=== PATIENT | female | born 1960 | race Caucasian/White ===

== ENCOUNTER 2016-08-05 20:08 | Emergency (ER) | payer OTHER ==
[2016-08-05 20:26] VITALS: TEMP 101.9; O2SAT 94
--- NOTE | 2016-08-05 21:14 | ED.PDOC ---
History of Present Illness - General Chief Complaint: Fever Stated Complaint: fever Time Seen by Provider: 08/05/16 20:36 Source: patient Exam Limitations: no limitations - History of Present Illness Initial Comments: Patient presents with fever for 4 days. No other symptoms. She says her whole family has the flu. 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 Associated Symptoms: denies symptoms Review of Systems - Review of Systems Constitutional: States: see HPI EENTM: States: no symptoms reported Respiratory: States: no symptoms reported Cardiology: States: no symptoms reported Gastrointestinal/Abdominal: States: no symptoms reported Genitourinary: States: no symptoms reported Musculoskeletal: States: no symptoms reported Skin: States: no symptoms reported Neurological: States: no symptoms reported Endocrine: States: no symptoms reported Hematologic/Lymphatic: States: no symptoms reported Past Medical History (General) - Patient Medical History Hx Seizures: No Hx Stroke: Yes Hx Dementia: No Hx Asthma: No Hx of COPD: Yes Hx Cardiac Disorders: Yes - Stents Hx Congestive Heart Failure: No Hx Pacemaker: No Hx Hypertension: Yes Hx Thyroid Disease: No Hx Diabetes: No Hx Gastroesophageal Reflux: Yes Hx Renal Disease: No Hx Cancer: No Hx of HIV: No Hx Hepatitis C: No Hx MRSA: No - Vaccination History Hx Tetanus, Diphtheria Vaccination: No Hx Influenza Vaccination: No Hx Pneumococcal Vaccination: No - Social History Hx Tobacco Use: Yes Hx Chewing Tobacco Use: No Hx Alcohol Use: No Hx Substance Use: No Hx Substance Use Treatment: No Hx Depression: No Hx Physical Abuse: No Hx Emotional Abuse: No Hx Suspected Abuse: No - Triage Comment ED Triage Comment: Pt states she has been running a fever for the past 4 days. She states it could possibly be from an infected tatoo Family Medical History - Family History Mother Family History: Unknown Physical Exam - Physical Exam General Appearance: Alert ENT Exam: normal ENT inspection Neck: non-tender, full range of motion, supple Respiratory: lungs clear Cardiovascular/Chest: regular rate, rhythm Gastrointestinal/Abdominal: normal bowel sounds, non tender, soft Skin Exam: normal color Lymphatic: no adenopathy Progress - Progress Progress: 08/05/16 21:13 Influenza A positive. Rapid strep negative. Departure - Departure Clinical Impression: Influenza A Disposition: Discharge to Home or Self Care Condition: Good Departure Forms: ED Discharge - Pt. Copy, Patient Portal Self Enrollment Diet: resume usual diet Activity: increase activity as tolerated Home Medications: Ambulatory Orders BuPROPion XL [Wellbutrin XL] 150 mg PO DAILY 10/13/14 Duloxetine HCl [Cymbalta] 60 mg PO BID 10/13/14 Esomeprazole Magnesium [Nexium] 20 mg PO TID 10/13/14 Quetiapine Fumarate [Seroquel] 300 mg PO DAILY 10/13/14 ALPRAZolam [Xanax] 0.5 mg PO TID 02/24/16 Aspirin [Aspirin Adult Low Dose] 81 mg PO DAILY 02/24/16 Doxycycline (Monohydrate) [Doxycycline] 100 mg PO BID 02/24/16 HYDROcodone 10MG/APAP 325MG [[place] 10/325] 1 ea PO DAILY 02/24/16 Oxcarbazepine [Trileptal] 600 mg PO BID 02/24/16 Prasugrel [Effient] 10 mg PO DAILY 02/24/16 Additional Instructions: Increase oral fluids. Tylenol for pain or fever control. Return to clinic or ER if symptoms have not resolved in 7 days.
[2016-08-05 21:34] VITALS: BP 121/64
== END 2016-08-05 21:34 | disposition home or self-care (01) ==
LOC: ER 20:08
DX: J10.1 Influenza due to other identified influenza virus with other respiratory manifestations (principal); J44.9 Chronic obstructive pulmonary disease, unspecified; I10 Essential (primary) hypertension; K21.9 Gastro-esophageal reflux disease without esophagitis; Z87.891 Personal history of nicotine dependence; Z86.73 Personal history of transient ischemic attack (TIA), and cerebral infarction without residual deficits; Z79.899 Other long term (current) drug therapy

== ENCOUNTER 2016-08-17 17:17 | Inpatient (IN) | payer OTHER ==
[2016-08-17] MEDS ORDERED: ACETAMINOPHEN 500 MG TAB PO ONE (17:44)
--- NOTE | 2016-08-17 17:48 | ED.PDOC ---
History of Present Illness - General Chief Complaint: Skin/Abrasion/Tear Stated Complaint: abscess Time Seen by Provider: 08/17/16 17:26 Source: patient Exam Limitations: no limitations - History of Present Illness Initial Comments: PT C/O PAIN TO L UPPER BACK, COUGH, SOB, FEVER. Timing/Duration: unsure Severity: moderate Worsening Factors: nothing Associated Symptoms: fever/chills Allergies/Adverse Reactions: Allergies Sulfa Antibiotics Allergy (Verified 08/17/16 17:29) Home Medications: Ambulatory Orders BuPROPion XL [Wellbutrin XL] 150 mg PO DAILY 10/13/14 Duloxetine HCl [Cymbalta] 60 mg PO BID 10/13/14 Esomeprazole Magnesium [Nexium] 20 mg PO TID 10/13/14 Quetiapine Fumarate [Seroquel] 300 mg PO DAILY 10/13/14 ALPRAZolam [Xanax] 0.5 mg PO TID 02/24/16 Aspirin [Aspirin Adult Low Dose] 81 mg PO DAILY 02/24/16 Doxycycline (Monohydrate) [Doxycycline] 100 mg PO BID 02/24/16 HYDROcodone 10MG/APAP 325MG [[place] 10/325] 1 ea PO DAILY 02/24/16 Oxcarbazepine [Trileptal] 600 mg PO BID 02/24/16 Prasugrel [Effient] 10 mg PO DAILY 02/24/16 Review of Systems - Review of Systems Constitutional: States: fever. Denies: chills EENTM: States: throat pain. Denies: ear pain, nose pain Respiratory: States: cough, other - PROD YELLOW SPUTUM. Denies: short of breath Cardiology: Denies: chest pain, palpitations, syncope Gastrointestinal/Abdominal: States: nausea. Denies: abdominal pain, diarrhea Musculoskeletal: States: no symptoms reported Skin: States: no symptoms reported Neurological: States: no symptoms reported Endocrine: States: no symptoms reported Hematologic/Lymphatic: States: no symptoms reported Past Medical History (General) - Patient Medical History Hx Seizures: No Hx Stroke: Yes Hx Dementia: No Hx Asthma: No Hx of COPD: Yes Hx Cardiac Disorders: Yes - Stents, [place] Hx Congestive Heart Failure: No Hx Pacemaker: No Hx Hypertension: Yes Hx Thyroid Disease: No Hx Diabetes: No Hx Gastroesophageal Reflux: Yes Hx Renal Disease: No Hx Cancer: No Hx of HIV: No Hx Hepatitis C: No Hx MRSA: No Surgical History: cholecystectomy - Vaccination History Hx Tetanus, Diphtheria Vaccination: No Hx Influenza Vaccination: No Hx Pneumococcal Vaccination: No - Social History Hx Tobacco Use: Yes Hx Chewing Tobacco Use: No Hx Alcohol Use: No Hx Substance Use: No Hx Substance Use Treatment: No Hx Depression: No Hx Physical Abuse: No Hx Emotional Abuse: No Hx Suspected Abuse: No - Activities of Daily Living Hospice Agency (if applicable):: None - Female History Patient is a Female of Child Bearing Age (10 -59 yrs old): No Patient : No Family Medical History - Family History Mother Family History: Unknown Physical Exam - Physical Exam General Appearance: Alert, No apparent distress Eye Exam: bilateral normal Ears, Nose, Throat: other - EDENTULOUS, MOIST MM Neck: full range of motion, supple, normal inspection Respiratory: no respiratory distress, no accessory muscle use, rales - BIBASILAR , other - NO WHEEZES, RHONCHI Cardiovascular/Chest: regular rate, rhythm, no murmur, other - 3 SMALL PUSTULES TO ANT CHEST WALL. Gastrointestinal/Abdominal: normal bowel sounds, soft, no organomegaly Back Exam: normal inspection, no CVA tenderness, other - 6-7 CM ABSCESS TO L UPPER POST THROAX WITH PRURULENT MATERIAL DRAINING FROM CENTRAL OPENING Extremity: normal range of motion, non-tender, normal inspection Neurologic: alert, normal mood/affect, oriented x 3 Skin Exam: normal color, warm/dry, other - SEE BACK AND CHEST Lymphatic: no adenopathy Progress - Progress Progress: 08/17/16 21:27 HAS REMAINED STABLE. Procedures - Incision and Drainage #1 Site: L POST THORAX Procedure and Prep: betadine prep, sterile drapes applied, pus drained Procedure Comments: APPROX 15CC PUS OBTAINED, SEPTATIONS BLUNTLY REMOVED, PACKED WITH IODOFORM GAUZE. Departure - Departure Clinical Impression: Abscess Pneumonia Qualifiers: Pneumonia type: due to unspecified organism Laterality: bilateral Lung location : upper lobe of lung Qualifier Code: (J18.9) Pneumonia, unspecified organism Time of Disposition: 21:30 - D/W DR ARGUELLO WILL ADMIT Disposition: Admit Patient Condition: Fair Departure Forms: ED Discharge - Pt. Copy, Patient Portal Self Enrollment Home Medications: Ambulatory Orders BuPROPion XL [Wellbutrin XL] 150 mg PO DAILY 10/13/14 Duloxetine HCl [Cymbalta] 60 mg PO BID 10/13/14 Esomeprazole Magnesium [Nexium] 20 mg PO TID 10/13/14 Quetiapine Fumarate [Seroquel] 300 mg PO DAILY 10/13/14 ALPRAZolam [Xanax] 0.5 mg PO TID 02/24/16 Aspirin [Aspirin Adult Low Dose] 81 mg PO DAILY 02/24/16 Doxycycline (Monohydrate) [Doxycycline] 100 mg PO BID 02/24/16 HYDROcodone 10MG/APAP 325MG [[place] 10/325] 1 ea PO DAILY 02/24/16 Oxcarbazepine [Trileptal] 600 mg PO BID 02/24/16 Prasugrel [Effient] 10 mg PO DAILY 02/24/16
--- NOTE | 2016-08-17 18:16 | RAD ---
PROCEDURE: Chest,2 Views CLINICAL HISTORY: COUGH, FEVER INDICATION: Same as above COMPARISON: 02/24/2016 TECHNIQUE: PA and and lateral chest radiographs were obtained. FINDINGS: There is presence of diffuse large infiltrates involving all segments of the right lung and presence of aodeb-ic-wetqeiij size infiltrates in the left upper lobe and lingula of the left lung There are no pneumothoraces or pleural effusions. The pulmonary vascularity is normal The cardiomediastinal silhouette is unremarkable for patient's age and sex. IMPRESSION: There is presence of diffuse large infiltrates involving all segments of the right lung and presence of [id number] size infiltrates in the left upper lobe and lingula of the left lung Electronically signed by: Mika Fuentes MD 08/17/2016 6:15 PM CHAIN HOIST OPERATOR
[2016-08-17] MEDS ORDERED: CLINDAMYCIN IV 900MG 900 MG in PREMIX BAG 1 BAG IVPB ONE (18:34)
[2016-08-17] MEDS ORDERED: cefTRIAXone SODIUM 1 GM in SODIUM CHL 0.9% 50ML MIN-BAG+ 50 ML IVPB ONE (18:34)
[2016-08-17] MEDS ORDERED: AZITHROMYCIN IV 500 MG in SODIUM CHLORIDE 0.9% 250ML 250 ML IVPB ONE (18:34)
[2016-08-17] MEDS ORDERED: LORazepam 0.5 MG TAB PO ONE (18:37)
[2016-08-17] MEDS ORDERED: POTASSIUM CHLORIDE 20 MEQ TAB PO ONE (18:37)
[2016-08-17] MEDS ORDERED: cefTRIAXone SODIUM 1 GM VIAL ONE (19:08)
[2016-08-17] MEDS ORDERED: AZITHROMYCIN IV 500 MG VIAL IVPB ONE (19:08)
[2016-08-17] MEDS ORDERED: SODIUM CHL 0.9% 50ML MIN-BAG+ 50 ML IVPB ONE (19:09)
[2016-08-17] MEDS ORDERED: CLINDAMYCIN IV 900MG 50 ML IVPB ONE (19:09)
[2016-08-17] MEDS ORDERED: SODIUM CHLORIDE 0.9% 250ML 250 ML ONE (19:09)
[2016-08-17] MEDS ORDERED: SODIUM CHLORIDE 0.9% (FLUSH) 10 ML SYG IV PRN (20:32)
[2016-08-17] MEDS ORDERED: HYDROcodone 5MG/APAP 325MG 1 EA TAB PO PRN (20:32)
[2016-08-17] MEDS ORDERED: MAGNESIUM HYDROXIDE 30 ML UD PO PRN (20:32)
[2016-08-17] MEDS ORDERED: ACETAMINOPHEN 325 MG TAB PO PRN (20:32)
[2016-08-17] MEDS ORDERED: LEVALBUTEROL NEBS 1.25 MG/3 ML VIAL INH PRN (20:32)
[2016-08-17] MEDS ORDERED: ALPRAZolam 0.5 MG TAB PO PRN (20:41)
[2016-08-17] MEDS ORDERED: SOD CHL 3% *HYPERTONIC* 500ML 300 ML IVS ONE (20:45)
[2016-08-17] MEDS ORDERED: KCL 40 MEQ/WATER FOR INJECTION 40 MEQ in PREMIX BAG 1 BAG IVPB ONE (20:46)
[2016-08-17] MEDS ORDERED: FUROSEMIDE 40 MG TAB PO ONE (20:47)
[2016-08-17] MEDS ORDERED: LIDOCAINE 1% 10 ML VIAL INJ ONE (20:51)
[2016-08-17] MEDS ORDERED: NON-FORMULARY MEDICATION 1 EA MIS (Quetiapine Fumarate [Seroquel] 300 MG) PO SCH (21:00)
[2016-08-17] MEDS ORDERED: IV SET AND CAP CHANGE INJ INJ SCH (21:00)
[2016-08-17] MEDS ORDERED: NON-FORMULARY MEDICATION 1 EA MIS (Duloxetine Hcl [Cymbalta] 60 MG) PO SCH (21:00)
[2016-08-17] MEDS ORDERED: OXCARBAZEPINE 600 MG PO SCH (21:00)
[2016-08-17] MEDS ORDERED: IODOFORM PACKING 1/2 INCH 1 EA BTTL TOP ONE (21:14)
[2016-08-17] MEDS ORDERED: POVIDONE IODINE 10 % 15 ML UD TOP ONE (21:15)
--- NOTE | 2016-08-17 21:56 | HP ---
HISTORY OF PRESENT ILLNESS: This 55 year-old white female is admitted to the hospital via the Emergency Room because of worsening cough and dark sputum production with a large boil on her left shoulder. It is of note that she was in the Emergency Room with a fever 2 weeks ago and was found to have Influenza A infection and returned home. She describes herself as generally being homeless but she does visit her mother occasionally in [place]. For the last 3 to 4 weeks, she has increased worsening cough now with sputum yellowish brown in coloration. She has had continued fever and chills, and now present with worsening dyspnea as well. For the last 3 to 4 days, she has had a large growing tender boil on her left shoulder posteriorly that presents now with a large carbuncle requiring incision and drainage. In the Emergency Room, she was found to have a slightly elevated white count of over 12,000 with low potassium, low sodium, elevated liver enzymes and a very severe bilateral pneumonia present. Cultures were obtained and the patient was started on Cleocin, Azithromycin and Rocephin because of the severity of the underlying infiltrative process. PAST MEDICAL HISTORY: 1. Myocardial infarction in October of 2015. 2. She states that she has had some mental problems which may be indicative of a bipolar presentation but the patient has a hard time explaining what her problems are. PAST SURGICAL HISTORY: 1. Lumbar back. 2. Gallbladder. 3. Breast. 4. Uterus. 5. Bladder suspension. PAST OBSTETRIC HISTORY: 3 para 3, AB 0. Two of her children are still alive. CURRENT MEDICATIONS: Please refer to nurses' notes for an up to date list of verified home medicines. ALLERGIES: SULFA ANTIBIOTICS. SOCIAL HISTORY: She stopped smoking over 6 weeks ago. 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 REVIEW OF SYSTEMS: No significant weight change. She has had fever and chills. Hearing and vision appear to be normal. LUNGS: Worsening shortness of breath with cough and production of yellowish brown sputum over the last 2 to 3 weeks and worsening. Exertional dyspnea present. CARDIOVASCULAR: No significant chest pain. Pulse is fairly regular. ABDOMEN: Soft with no organomegaly, masses or tenderness. Appetite is fair. EXTREMITIES: A large carbuncle with multiple heads is noted in the left shoulder area to be opened by the Emergency Room doctor with cultures to be obtained and continued wound care. NEUROLOGIC: The patient is communicative and seems to be well oriented. PHYSICAL EXAMINATION: VITAL SIGNS: Temperature 100.8 up to 101.9, pulse 95, blood pressure 122/67, pulse oximetry 94% on room air. Weight 90.7 kilos. GENERAL: The patient is awake and alert. She is frequently coughing and is able to produce some sputum for culture. Painful swelling in the left shoulder will be incised and drained by the E. R. physician and further wound care to continue. CARDIOVASCULAR: Regular rhythm. ABDOMEN: Generally soft with no organomegaly, masses or tenderness. EXTREMITIES: Fairly well formed with a large carbuncle behind the left shoulder. NEUROLOGIC: The patient is able to carry on a good conversation and is fairly good regarding her past history. LABORATORY: White count elevated at 12,100 with 80% neutrophils, hemoglobin 10.6 with a normocytic normochromic presentation. Chemistry shows sodium low at 126, potassium low at 2.4, CO2 of 34, BUN 10, creatinine 0.6, glucose 93, osmolality low at 252, calcium 8. Liver enzymes elevated with AST of 128, ALT 68, alkaline phosphatase 129, albumin 2.2. Urinalysis does show some urobilinogen, 1+ bacteriuria. Strep is negative and Influenza A is positive dated 2 weeks ago in the Emergency Room. Blood cultures are pending. Chest x-ray performed today is very abnormal with a bilateral pneumonia with large infiltrate especially involving segments of the right lung with infiltrates also present left upper lobe and lingula left lung with close followup as necessary and treatment to be vigorously advanced. ASSESSMENT: 1. Bilateral pneumonia quite severe. Close observation and parenteral antibiotics initiated. 2. Carbuncle left shoulder after incision and drainage in the Emergency Room requiring ongoing wound care. 3. Anemia with a normocytic normochromic presentation. 4. Elevated white count of 12,100 with 80% neutrophils. 5. Hypokalemia, potassium 2.4. 6. Hyponatremia with 126. 7. Elevated liver enzymes. 8. Hypoalbuminemia. 9. Recent flu A infection without treatment. PLAN: The patient is admitted for initiation of vigorous treatment options including parenteral antibiotic therapy after cultures obtained. She will be started on Rocephin, Azithromycin and Cleocin. Social Service to evaluate for possible fdc placement since the patient states that she is homeless and is having a difficult time managing. Fluid restrictions with a loop diuretic dose tonight, hypertonic saline, recheck sodium and a potassium ride is given. Reevaluate in the morning. MRSA decolonization in progress and wound care to continue. Close followup suggested. Outpatient followup with Dr. Do, her primary care provider when stable. #[id number] [facility]
[2016-08-17] MEDS ORDERED: BENZONATATE PERLES 100 MG CAP PO PRN (21:59)
[2016-08-17] MEDS ORDERED: OXcarbazepine 300 MG TAB PO ONE (22:23)
[2016-08-17] MEDS ORDERED: QUEtiapine FUMARATE 100 MG TAB ONE (22:23)
[2016-08-17] MEDS ORDERED: DULoxetine HCL 30 MG CAP PO ONE (22:23)
[2016-08-17] MEDS: BACITRACIN 0.9 GM UD PCKT TOP SCH (22:34)
[2016-08-17] MEDS: PROMETHAZINE W/CODEINE SYR 5 ML UD PO PRN (22:35)
[2016-08-17] MEDS ORDERED: KCL 40 MEQ/WATER FOR INJECTION 100 ML IVPB ONE (22:46)
[2016-08-18] MEDS ORDERED: CLINDAMYCIN IV 900MG 50 ML IVPB ONE ×2 (02:45→08:09)
[2016-08-18] MEDS: CLINDAMYCIN IV 900MG 900 MG in PREMIX BAG 1 BAG IVPB SCH ×2 (03:11→11:48)
[2016-08-18] MEDS: KCL 40MEQ/NS 1,000 ML IVS PRN ×2 (03:40→20:02)
[2016-08-18] MEDS: OMEPRAZOLE CAP 20 MG CAP PO SCH (06:50)
[2016-08-18] MEDS ORDERED: SODIUM CHLORIDE 0.9% 10 ML VIAL IV PRN (07:25)
--- NOTE | 2016-08-18 07:54 | RAD ---
EXAM DESCRIPTION: Chest,2 Views CLINICAL HISTORY: Pneumonia COMPARISON: 08/17/2016 TECHNIQUE: Two-views of the chest. FINDINGS: Cavitary lesion right upper lobe. Alveolar consolidation over about 6.5 cm with central lucency consistent with cavitation. Mild volume loss right upper lobe. Perihilar alveolar infiltrate. There is a small area of left suprahilar opacity, likely pneumonia. Faint left lung base interstitial infiltrate. No pleural effusion. No acute bony abnormality IMPRESSION: Large area of cavitary consolidation right upper lobe strongly suggesting pulmonary abscess. Underlying cavitary mass lesion not excluded. Bilateral patchy infiltrates perihilar regions Electronically signed by: Tito Thornton MD 08/18/2016 7:53 AM AERONAUTICAL DESIGN ENGINEER
[2016-08-18] MEDS ORDERED: SODIUM CHL 0.9% 50ML MIN-BAG+ 50 ML IVPB ONE (08:09)
[2016-08-18] MEDS ORDERED: cefTRIAXone SODIUM 1 GM VIAL ONE (08:10)
[2016-08-18] MEDS: OXcarbazepine 300 MG TAB PO SCH ×2 (08:41→21:07)
[2016-08-18] MEDS: ASPIRIN EC 81 MG TAB PO SCH (08:41)
[2016-08-18] MEDS: DULoxetine HCL 30 MG CAP PO SCH ×2 (08:41→21:07)
[2016-08-18] MEDS: PRASUGREL 10 MG TAB PO SCH (08:42)
[2016-08-18] MEDS: Wellbutrin XL 150 MG TAB PO SCH (08:42)
[2016-08-18] MEDS: BACITRACIN 0.9 GM UD PCKT TOP SCH ×2 (08:42→21:07)
[2016-08-18] MEDS: IPRATROPIUM/ALBUTEROL 3 ML VIAL INH SCH ×4 (08:45→21:15)
[2016-08-18] MEDS ORDERED: cefTRIAXone SODIUM 1 GM in SODIUM CHL 0.9% 50ML MIN-BAG+ 50 ML IVPB SCH (09:00)
[2016-08-18] MEDS: CHLORHEXIDINE GLUCONATE 4 % 15 ML UD TOP SCH (09:29)
[2016-08-18] MEDS: PROMETHAZINE W/CODEINE SYR 5 ML UD PO PRN ×3 (11:48→22:45)
--- NOTE | 2016-08-18 13:56 | CT ---
CT chest with contrast CLINICAL HISTORY: Pneumonia. Cavitary lesions suggesting pulmonary abscess TECHNIQUE: Contrast-enhanced spiral CT with intravenous iodinated nonionic contrast. Coronal and sagittal reformatted images. COMPARISON: Radiograph 08/18/2016. FINDINGS: Cavitary lung lesions right upper lobe and superior segment right lower lobe consistent with pulmonary abscess with large areas of surrounding consolidation/infiltrate. The right upper lobe abscess has approximate measurements of 4.5 x 5.4 x 5.1 cm. Superior segment right lower lobe abscess approximately 4.8 x 5.8 x 6 cm Patchy areas of consolidation are also seen in the left upper lobe anterior medial where there are subtle early areas of cavitation suspected for example axial series 2 image 23. Patchy infiltrate in the inferior lingula and a small focal area of consolidation left lateral basal. There is a small amount of pleural fluid Normal heart size. Mediastinal and hilar lymph nodes are likely reactive lymphadenopathy Normal contrast enhancement of the cardiac chambers and thoracic aorta. Normal contrast enhancement of pulmonary arteries. Normal heart size Images through the upper abdomen show no mass or adenopathy Multilevel degenerative change in the spine without acute bony abnormality IMPRESSION: Bilateral pneumonia. Large areas of cavitation/pulmonary abscess right upper lobe and superior segment right lower lobe. Focal small area of infiltrate/consolidation in the anterior perihilar left upper lobe with early cavitation Electronically signed by: Tito Thornton MD 08/18/2016 1:55 PM EXTRACORPOREAL TECHNICIAN
[2016-08-18] MEDS ORDERED: VANCOMYCIN PER PHARMACY IVPB SCH (17:00)
[2016-08-18] MEDS ORDERED: PIPERACILLIN/TAZOBACTAM 2.25 GM VIAL IVPB ONE ×2 (17:43→22:27)
[2016-08-18] MEDS ORDERED: SODIUM CHLORIDE 0.9% 100ML 100 ML IVPB ONE ×2 (17:43→22:28)
[2016-08-18] MEDS ORDERED: TUBERCULIN 5TU 5 TU/0.1 ML VIAL ID ONE (18:29)
[2016-08-18] MEDS: PIPERACILLIN/TAZOBACTAM 4.5 GM in SODIUM CHLORIDE 0.9% 100ML 100 ML IVPB SCH (18:48)
[2016-08-18] MEDS ORDERED: SODIUM CHLORIDE 0.9% 250ML 250 ML ONE (19:46)
[2016-08-18] MEDS ORDERED: VANCOMYCIN HCL INJ 500 MG VIAL ONE (19:46)
[2016-08-18] MEDS ORDERED: VANCOMYCIN HCL INJ 1,000 MG VIAL IVPB ONE (19:47)
[2016-08-18] MEDS: VANCOMYCIN HCL INJ 1,000 MG, VANCOMYCIN HCL INJ 250 MG in SODIUM CHLORIDE 0.9% 250ML 25... IVPB SCH (20:02)
[2016-08-18] MEDS ORDERED: QUEtiapine FUMARATE 100 MG TAB PO SCH (21:00)
[2016-08-18] MEDS ORDERED: AZITHROMYCIN IV 500 MG in SODIUM CHLORIDE 0.9% 250ML 250 ML IVPB SCH (21:00)
[2016-08-19] MEDS: PIPERACILLIN/TAZOBACTAM 4.5 GM in SODIUM CHLORIDE 0.9% 100ML 100 ML IVPB SCH ×2 (00:07→06:13)
[2016-08-19] MEDS ORDERED: PIPERACILLIN/TAZOBACTAM 2.25 GM VIAL IVPB ONE (05:47)
[2016-08-19] MEDS ORDERED: SODIUM CHLORIDE 0.9% 100ML 100 ML IVPB ONE (05:48)
[2016-08-19] MEDS: PROMETHAZINE W/CODEINE SYR 5 ML UD PO PRN (06:14)
[2016-08-19] MEDS: OMEPRAZOLE CAP 20 MG CAP PO SCH (06:30)
[2016-08-19] MEDS ORDERED: SODIUM CHLORIDE 0.9% 250ML 250 ML ONE (06:31)
[2016-08-19] MEDS ORDERED: VANCOMYCIN HCL INJ 500 MG VIAL ONE (06:31)
[2016-08-19] MEDS ORDERED: VANCOMYCIN HCL INJ 1,000 MG VIAL IVPB ONE (06:31)
[2016-08-19] MEDS: VANCOMYCIN HCL INJ 1,000 MG, VANCOMYCIN HCL INJ 250 MG in SODIUM CHLORIDE 0.9% 250ML 25... IVPB SCH (08:10)
--- NOTE | 2016-08-19 08:17 | PN ---
SUPERVISING PHYSICIAN: Rashaun Tineo MD DATE: 08/18/16 SUBJECTIVE: The patient is lying in her hospital bed. She has a dry, hacking cough. It is very difficult to discern if she is answering questions appropriately as sometimes she does not seem to understand the questioning. At this point, she denies shortness of breath, but she is obviously dyspneic with respiratory rate about 24. She also denies any nausea or vomiting, any stomach pain, dizziness, or headaches. OBJECTIVE: VITAL SIGNS: Afebrile. Heart rate 82. Blood pressure 122/70. Respiratory rate has gone as high as 24, but is mostly around 20. O2 saturations 88%. GENERAL: This is a very disheveled 55-year-old female. LUNGS: Bilateral rhonchi throughout with some mild expiratory wheezing. She is diminished at the bases. CARDIAC: Regular rate and rhythm. ABDOMEN: Soft, nontender, nondistended. Bowel sounds are positive. The drain to her abscess on her back is draining kind of a serous type fluid. NEUROLOGIC: Awake, alert and oriented times three, but she has a difficult time answering simple yes/no questions and is a poor historian. LABORATORY: WBC 12.7, hemoglobin 10.2, hematocrit 30.3, neutrophils 85.9. Sodium 132, potassium 3.1, chloride 92, creatinine 0.57, serum osmolality 263.6 , calcium 7.7, total bilirubin 1.2, AST 105, ALT 61, alkaline phosphatase 126, albumin 2.1, globulin 4.9. Preliminary blood cultures are negative after 24 hours. Chest x-ray shows a large area of cavitary consolidation in the right upper lobe strongly suggesting a pulmonary abscess with underlying cavitary mass lesion not excluded with bilateral patchy infiltrates to the perihilar regions. Chest CT shows bilateral pneumonia, large areas of cavitation/ pulmonary abscess of the right upper lobe and superior segment right lower lobe with small area of infiltrate/consolidation in the anterior perihilar left upper lobe with early cavitation. The right upper lobe abscess has approximate measurements of 4.5 x 5.4 x 5.1 cm and the superior segment right lower lobe abscess is approximately 4.8 x 5.8 x 6 cm. All other labs and films have been reviewed via the EMR. ASSESSMENT: 1. Cavitary pneumonia of the right upper lobe and right lower lobe. 2. Bilateral pneumonia of the perihilar regions. 3. Carbuncle of the left shoulder after incision and drainage in the Emergency Room requiring ongoing wound care and continuing serous drainage. 4. Anemia with normocytic/normochromic presentation. 5. Leukocytosis. 6. Hypokalemia. 7. Hyponatremia. 8. Elevated liver enzymes. 9. Hypoalbuminemia. 10. Recent flu A infection without treatment. PLAN: The patient is quite sick. I discussed at length her CT scan with the radiologist, Dr. Tito Thornton. I also discussed her case with Dr. Rosenbaum, pump station operator in [place]. At his recommendation, we have changed her IV antibiotics to Zosyn. According to Dr. Rosenbaum, she will need approximately 4 to 6 weeks for continued IV antibiotic therapy with close followup with a pump station operator. I have also added vancomycin. We have put her in respiratory isolation as well as PPD skin test to rule out any TB. There was a sputum collected in the Emergency Room, but somehow did get to the lab, so I have added a sputum culture although she has been treated with some antibiotics for about 24 hours. Kim Romero, our older adult social work specialist, has initiated discharge to [facility]. We will also have to plan on a PICC line at some point because of her prison antibiotic regimen that will be coming up. Her medications have not been completely verified, so we will need to find out some more information about those. We will also need to monitor for syndrome of inappropriate ADH. I will also check her potassium and her magnesium this evening. Routine lab with the magnesium will be done in the morning. We will encourage good pulmonary toilet. Followup as medically needed. Dr. Tineo is the collaborating physician and available for consultation. #[id number] [facility]
[2016-08-19] MEDS ORDERED: POTASSIUM CHLORIDE 20 MEQ TAB PO ONE (08:26)
[2016-08-19] MEDS: IPRATROPIUM/ALBUTEROL 3 ML VIAL INH SCH (08:33)
[2016-08-19] MEDS ORDERED: KCL 20MEQ/WATER FOR INJ 100ML 100 ML IVPB ONE (09:07)
[2016-08-19] MEDS ORDERED: FLUCONAZOLE IV 200 MG in PREMIX BAG 1 BAG IVPB ONE (10:00)
[2016-08-19] MEDS ORDERED: FLUCONAZOLE IV 100 ML IVPB ONE (10:01)
[2016-08-19] MEDS: OXcarbazepine 300 MG TAB PO SCH (10:09)
[2016-08-19] MEDS: BACITRACIN 0.9 GM UD PCKT TOP SCH (10:10)
[2016-08-19] MEDS: ASPIRIN EC 81 MG TAB PO SCH (10:10)
[2016-08-19] MEDS: PRASUGREL 10 MG TAB PO SCH (10:10)
[2016-08-19] MEDS: Wellbutrin XL 150 MG TAB PO SCH (10:10)
[2016-08-19] MEDS: DULoxetine HCL 30 MG CAP PO SCH (10:10)
[2016-08-19] MEDS: CHLORHEXIDINE GLUCONATE 4 % 15 ML UD TOP SCH (10:11)
[2016-08-19] MEDS ORDERED: KCL 20MEQ/WATER FOR INJ 100ML 20 MEQ in PREMIX BAG 1 BAG IVPB ONE (11:00)
[2016-08-19 12:10] VITALS: BP 138/91; TEMP 97.6; O2SAT 91
--- NOTE | 2016-08-19 14:08 | DS ---
SUPERVISING PHYSICIAN: Rashaun Tineo MD DISCHARGE DIAGNOSIS: 1. Cavitary pneumonia of the right upper lobe and right lower lobe. 2. Bilateral pneumonia of the perihilar regions. 3. Carbuncle of the left shoulder after incision and drainage in the Emergency Room requiring ongoing wound care and continuing serous drainage. 4. Anemia with normocytic/normochromic presentation. 5. Leukocytosis. 6. Hypokalemia. 7. Hyponatremia. 8. Elevated liver enzymes. 9. Hypoalbuminemia. 10. Recent flu A infection without treatment. HISTORY OF PRESENT ILLNESS: This is a 55-year-old female patient who was admitted to the hospital via the Emergency Room due to worsening cough and dark sputum production as well as a large boil on her left shoulder. She had been in the Emergency Room with fever about two weeks ago and was found to have influenza A infection and she returned home. She described herself as generally being homeless, but she does visit her mother occasionally in [place]. For the last three to four weeks, she has had an increasingly worse cough with yellowish brown sputum in coloration. She also continued to have fever and chills. She came to the Emergency Room due to worsening dyspnea as well as a tender boil on her left shoulder. In the Emergency Room, there was an I&D done on the boil and the wound was cultured. She was also found to have a slightly elevated white count of over 12,000 with a low potassium, low sodium , elevated liver enzymes, and a very severe bilateral pneumonia. Cultures were obtained and the patient was started on Cleocin, azithromycin and Rocephin. HOSPITAL COURSE: The patient's condition did not improve and a CT of her chest was obtained that showed a right upper lobe abscess that had approximate measurements of 4.5 x 5.4 x 5.1 cm and there was another superior segment right lower lobe abscess that was approximately 4.8 x 5.8 x 6 cm. She also had bilateral pneumonia in the perihilar area of her lungs. She continued to need potassium replacement and her cough worsened. She did have a sputum that was done in the Emergency Room, but somehow did not get sent to the lab, so she had a sputum done after antibiotic therapy had started. She was put in airborne isolation. PPD skin test was run as well as AFB on her sputum. Also, we discontinued her azithromycin, clindamycin and Rocephin and changed her to Zosyn as well as vancomycin. The abscess in her left shoulder continued to drain a lot of serous fluids. It is also to be noted that she has some sort of mental problems that are most likely bipolar disorder and I am not quite sure who had been treating her for her bipolar disorder. Her preliminary blood cultures have been negative after 24 hours[address] I spoke with Dr. Tarango this morning , infectious disease physician in [place], after reviewing her labs and her chest CT. She recommended that she be given a dose of metronidazole and transferred to [facility] [place] for more extensive treatment. I spoke with the Emergency Room doctor, Dr. Garcia, and he agreed to the transfer. The patient will be transferred to [facility] Emergency Room per Dr. Garcia's request as well as Dr. Tarango's request. DISCHARGE PLAN: The patient will be discharged in stable condition to [facility] [place]. We have sent all of her hospital records. We have also sent copies of her home medications. She is to followup with her primary care physician after discharge. She will most likely require four to six weeks of IV therapy, but that will be left to [facility] at this time. The patient was transported via ambulance to [facility] [place]. DISCHARGE MEDICATIONS: 1. Wellbutrin. 2. Seroquel. 3. Nexium. 4. Cymbalta. 5. [place]. 6. Trileptal. 7. Xanax. 8. Effient. 9. Aspirin. 10. Fluconazole. 11. Zosyn. 12. Vancomycin. Dr. Tineo is the collaborating physician and available for consultation. #[id number] [facility]
== END 2016-08-19 11:36 | disposition short-term general hospital (02) | DRG 178 ==
LOC: ER 17:17 → MS 21:42 → UNDOADMOB 21:42 → MS 21:43 → OBSVTOIN 08-18 12:13 → INTOOBSV 08-18 12:13 → MS 08-18 18:34 → UNDODISIN 08-19 11:36
PROVIDERS: ADMIT Emergency Medicine; ATTEND Nurse Practitioner Acute Care
PROC: 0H9CXZZ Drainage of Left Upper Arm Skin, External Approach (ICD-10-PCS; principal; 2016-08-18)
PROC: BB24YZZ Computerized Tomography (CT Scan) of Bilateral Lungs using Other Contrast (ICD-10-PCS; 2016-08-18)
DX: J85.1 Abscess of lung with pneumonia (principal); E87.1 Hypo-osmolality and hyponatremia; J44.9 Chronic obstructive pulmonary disease, unspecified; L02.434 Carbuncle of left upper limb; I10 Essential (primary) hypertension; D64.9 Anemia, unspecified; E87.6 Hypokalemia; K21.9 Gastro-esophageal reflux disease without esophagitis; R74.8 Abnormal levels of other serum enzymes; E88.09 Other disorders of plasma-protein metabolism, not elsewhere classified; F31.9 Bipolar disorder, unspecified; I25.2 Old myocardial infarction; Z88.2 Allergy status to sulfonamides; Z87.891 Personal history of nicotine dependence; Z79.82 Long term (current) use of aspirin; Z79.899 Other long term (current) drug therapy; Z86.73 Personal history of transient ischemic attack (TIA), and cerebral infarction without residual deficits; Z95.5 Presence of coronary angioplasty implant and graft

== ENCOUNTER 2017-02-24 21:41 | Emergency (ER) | payer OTHER ==
[2017-02-24] MEDS ORDERED: ASPIRIN TABLET 325 MG TAB ONE (21:52)
[2017-02-24] MEDS ORDERED: LIDOCAINE VIS-MYLANTA 30 ML UD PO ONE (21:56)
[2017-02-24] MEDS ORDERED: ALPRAZolam 0.25 MG TAB PO ONE (21:56)
[2017-02-24 21:58] VITALS: TEMP 98.2
[2017-02-24] MEDS ORDERED: ONDANSETRON ODT 8 MG TAB SL ONE (22:00)
--- NOTE | 2017-02-24 22:00 | ED.PDOC ---
History of Present Illness - General Chief Complaint: Chest Pain/MO Stated Complaint: chest pain elevated BP and HR Time Seen by Provider: 02/24/17 21:49 Source: patient Exam Limitations: no limitations - History of Present Illness Initial Comments: the patient is a 56-year-old female presenting to the emergency room secondary to lower substernal and epigastric painstarting approximately one hour prior to arrival. The pain started approximately half an hour after she ate a bunch of nachos with the picante sauce. She does feel like she needs to belch and is having some nausea. she does have a history of having had a heart attack a few years ago with having 2 stents placed. She does take Effient and aspirin daily and did take them today already. The patient has had a history of gastric ulcers and does take Nexium daily as well.according to her this does feel like heartburn but she has not taken anything additionally for it and wanted to be sure being that she had a cardiac history.he does also have a history of substance abuse but does not appear to be intoxicated today.she did also coincidentally run out of her Xanax within the last 2 days. Timing/Duration: 1 hour Severity: moderate Improving Factors: nothing Worsening Factors: nothing Associated Symptoms: chest pain, nausea/vomiting Allergies/Adverse Reactions: Allergies Sulfa Antibiotics Allergy (Verified 08/17/16 17:29) Home Medications: Ambulatory Orders Esomeprazole Magnesium [Nexium] 20 mg PO TID 10/13/14 ALPRAZolam [Xanax] 0.5 mg PO TID 02/24/16 Aspirin [Aspirin Adult Low Dose] 81 mg PO DAILY 02/24/16 HYDROcodone 10MG/APAP 325MG [Leon 10/325] 1 ea PO DAILY 02/24/16 Prasugrel [Effient] 10 mg PO DAILY 02/24/16 Sucralfate Tab [Carafate Tab] 1 gm PO QID #120 tab 02/25/17 Review of Systems - Review of Systems Constitutional: States: no symptoms reported EENTM: States: no symptoms reported Respiratory: States: no symptoms reported Cardiology: States: chest pain Gastrointestinal/Abdominal: States: abdominal pain, nausea Genitourinary: States: no symptoms reported Musculoskeletal: States: no symptoms reported Skin: States: no symptoms reported Neurological: States: no symptoms reported Endocrine: States: no symptoms reported All other Systems: No Change from Baseline Past Medical History (General) - Patient Medical History Hx Seizures: No Hx Stroke: Yes Hx Dementia: No Hx Asthma: No Hx of COPD: Yes Hx Cardiac Disorders: Yes - Stents, [place] Hx Congestive Heart Failure: No Hx Pacemaker: No Hx Hypertension: Yes Hx Thyroid Disease: No Hx Diabetes: No Hx Gastroesophageal Reflux: Yes Hx Renal Disease: No Hx Cancer: No Hx of HIV: No Hx Hepatitis C: No Hx MRSA: No - Vaccination History Hx Tetanus, Diphtheria Vaccination: No Hx Influenza Vaccination: No Hx Pneumococcal Vaccination: No - Social History Hx Tobacco Use: Yes Hx Chewing Tobacco Use: No Hx Alcohol Use: No Hx Substance Use: No Hx Substance Use Treatment: No Hx Depression: No Hx Physical Abuse: No Hx Emotional Abuse: No Hx Suspected Abuse: No - Female History Patient : No Family Medical History - Family History Mother Family History: Unknown Living Status: Still Living Physical Exam - Physical Exam General Appearance: Alert, Comfortable, No apparent distress Eye Exam: bilateral normal Ears, Nose, Throat: hearing grossly normal, normal ENT inspection, normal pharynx Neck: non-tender, full range of motion, supple Respiratory: lungs clear, normal breath sounds, no respiratory distress, no accessory muscle use Cardiovascular/Chest: normal peripheral pulses, regular rate, rhythm, no edema Peripheral Pulses: radial,right: 2+, radial,left: 2+, dorsalis pedis,right: 2+, dorsalis pedis,left: 2+ Gastrointestinal/Abdominal: soft, tenderness - epigastric. No definite palpable pulsatile masses Rectal Exam: deferred Back Exam: normal inspection, no CVA tenderness Extremity: normal range of motion, non-tender, normal inspection, no pedal edema , no calf tenderness, normal capillary refill Neurologic: prep cook II-XII nml as tested, alert, normal mood/affect, oriented x 3 Skin Exam: normal color Comments: Vital Signs - 24 hr 02/24/17 21:51 Temperature 98.2 F Pulse Rate [ 100 H monitor] Respiratory 20 Rate Blood Pressure 155/80 [left arn] O2 Sat by Pulse 99 Oximetry Progress - Progress Progress: 02/25/17 02:41 the patient's a 56-year-old female presenting with epigastric and substernal chest pain that is most consistent with a flareup of her gastritis and esophagitis. The patient will be written for Carafate 4 times daily for the next month. Cardiac enzymes are negative 2 sets. EKG and chest x-ray along with other lab work are reassuring. She can use Maalox additionally as needed to control symptoms. ER warnings were given for any worsening. She should follow up with her primary care doctor next week and with her form carpenter as previously scheduled. - Results/Orders Results/Orders: EKG shows normal sinus rhythm at a rate of [address] segment changes concerning for ischemia when compared with previous EKGs. Normal R-wave progression. Normal axis. 02/24/17 21:56 Telemetry .CONTINUOUS 02/24/17 22:00 EKG STAT Laboratory Results - last 24 hr 02/24/17 02/24/17 02/24/17 22:24 22:24 22:24 WBC 8.1 RBC 4.38 Hgb 13.0 Hct 39.6 MCV 90.5 MCH 29.6 MCHC 32.7 L RDW 15.1 H Plt Count 179 MPV 7.0 L Absolute Neuts (auto) 5.00 Absolute Lymphs (auto) 2.40 Absolute Monos (auto) 0.40 Absolute Eos (auto) 0.20 Absolute Basos (auto) 0.10 Neutrophils % 61.9 Lymphocytes % 29.4 Monocytes % 4.8 Eosinophils % 3.1 Basophils % 0.8 PT 10.1 INR 0.890 PTT (SP) 28.2 Sodium Potassium Chloride Carbon Dioxide Anion Gap BUN Creatinine BUN/Creatinine Ratio Random Glucose Serum Osmolality Calcium Total Bilirubin AST ALT Alkaline Phosphatase Creatine Kinase 84 CK-MB (CK-2) 1.8 CK-MB (CK-2) % Not Reportable Troponin I < 0.02 B-Natriuretic Peptide 18.6 Serum Total Protein Albumin Globulin Albumin/Globulin Ratio Amylase 37 Lipase 02/24/17 02/25/17 22:24 01:55 WBC RBC Hgb Hct MCV MCH MCHC RDW Plt Count MPV Absolute Neuts (auto) Absolute Lymphs (auto) Absolute Monos (auto) Absolute Eos (auto) Absolute Basos (auto) Neutrophils % Lymphocytes % Monocytes % Eosinophils % Basophils % PT INR PTT (SP) Sodium 142 Potassium 3.4 L Chloride 110 Carbon Dioxide 26 Anion Gap 9.4 L BUN 11 Creatinine 0.72 BUN/Creatinine Ratio 15.3 Random Glucose 167 H Serum Osmolality 286.3 Calcium 9.0 Total Bilirubin 0.3 AST 27 ALT 18 Alkaline Phosphatase 110 Creatine Kinase 74 CK-MB (CK-2) 1.6 CK-MB (CK-2) % Not Reportable Troponin I < 0.02 B-Natriuretic Peptide Serum Total Protein 7.0 Albumin 3.8 Globulin 3.2 Albumin/Globulin Ratio 1.2 Amylase Lipase 30 hest x-ray shows no definitive acute pathology. Departure - Departure Clinical Impression: Chest pain, atypical Gastritis Qualifiers: Gastritis type: unspecified gastritis Chronicity: chronic Gastritis bleeding: without bleeding Qualified Code(s): K29.50 - Unspecified chronic gastritis without bleeding Disposition: Discharge to Home or Self Care Condition: Fair Departure Forms: ED Discharge - Pt. Copy, Patient Portal Self Enrollment Instructions: DI for Gastritis Diet: bland diet Activity: increase activity as tolerated Prescriptions: Sucralfate Tab [Carafate Tab] 1 gm PO QID #120 tab Home Medications: Ambulatory Orders Esomeprazole Magnesium [Nexium] 20 mg PO TID 10/13/14 ALPRAZolam [Xanax] 0.5 mg PO TID 02/24/16 Aspirin [Aspirin Adult Low Dose] 81 mg PO DAILY 02/24/16 HYDROcodone 10MG/APAP 325MG [Leon 10/325] 1 ea PO DAILY 02/24/16 Prasugrel [Effient] 10 mg PO DAILY 02/24/16 Sucralfate Tab [Carafate Tab] 1 gm PO QID #120 tab 02/25/17 Additional Instructions: the patient's a 56-year-old female presenting with epigastric and substernal chest pain that is most consistent with a flareup of her gastritis and esophagitis. The patient will be written for Carafate 4 times daily for the next month. Cardiac enzymes are negative 2 sets. EKG and chest x-ray along with other lab work are reassuring. She can use Maalox additionally as needed to control symptoms. ER warnings were given for any worsening. She should follow up with her primary care doctor next week and with her form carpenter as previously scheduled.
--- NOTE | 2017-02-24 22:42 | RAD ---
EXAM: Chest,1 View CLINICAL INDICATION: 56-year-old female with epigastric and chest pain. TECHNIQUE: Single view, AP portable chest was obtained. COMPARISON: 08/18/2016. FINDINGS: Examination findings slightly limited by lordotic patient positioning. Stable prominent cardiac and mediastinal silhouette. Heart size is top normal. Lungs are clear without focal opacity, pneumothorax or pleural effusions. RIGHT upper lobe linear opacities may be secondary to scarring. The visualized bones are within normal limits. IMPRESSION: No acute cardiopulmonary abnormalities. Electronically signed by: Cammie Be MD 02/24/2017 10:40 PM CDT Workstation: [id number]
[2017-02-24] MEDS ORDERED: SUCRALFATE 1 GM/10 ML 1 GM UD PO ONE (23:05)
[2017-02-25 02:55] VITALS: BP 120/70; O2SAT 95
== END 2017-02-25 02:56 | disposition home or self-care (01) ==
LOC: ER 21:41
DX: R07.89 Other chest pain (principal); K29.50 Unspecified chronic gastritis without bleeding; I25.2 Old myocardial infarction; I10 Essential (primary) hypertension; K21.9 Gastro-esophageal reflux disease without esophagitis; J44.9 Chronic obstructive pulmonary disease, unspecified; Z86.73 Personal history of transient ischemic attack (TIA), and cerebral infarction without residual deficits; Z98.61 Coronary angioplasty status; Z79.82 Long term (current) use of aspirin; Z88.2 Allergy status to sulfonamides

== ENCOUNTER 2017-03-14 19:52 | Emergency (ER) | payer OTHER ==
[2017-03-14 20:18] VITALS: TEMP 98.5; O2SAT 95
--- NOTE | 2017-03-14 20:32 | RAD ---
EXAM DESCRIPTION: Chest,1 View CLINICAL HISTORY: cough COMPARISON: February 24, 2017 FINDINGS: Cardiac silhouette is within normal limits. Bandlike opacity in the right upper lung may represent scar versus subsegmental atelectasis, unchanged compared with the prior exam. There is no focal parenchymal or pleural disease. There is no acute osseous process visualized. IMPRESSION: Stable examination. Bandlike opacity in the right upper lung may represent scar versus subsegmental atelectasis, unchanged compared with the prior exam. Electronically signed by: Jimmy Lares MD 03/14/2017 8:31 PM CDT
[2017-03-14] MEDS ORDERED: cefTRIAXone SODIUM 1 GM VIAL IM ONE (21:47)
[2017-03-14] MEDS ORDERED: methylPREDNISolone ACETATE 80 MG/ML VIAL IM ONE (21:47)
[2017-03-14] MEDS ORDERED: BENZONATATE PERLES 100 MG CAP PO ONE (21:48)
--- NOTE | 2017-03-14 21:51 | ED.PDOC ---
History of Present Illness - General Chief Complaint: Respiratory Problem Stated Complaint: productive cough, sore throat, earache Time Seen by Provider: 03/14/17 21:36 Source: patient Exam Limitations: no limitations - History of Present Illness Timing/Duration: week Cough Quality/Degree: severe, productive cough Possible Cause: illness exposure, smoke exposure Improving Factors: nothing Worsening Factors: nothing Associated Symptoms: earache, sinus infection Respiratory Risk Factors: exposure to illness Allergies/Adverse Reactions: Allergies Statins Allergy (Verified 03/14/17 20:18) Sulfa Antibiotics Allergy (Verified 03/14/17 20:18) Home Medications: Ambulatory Orders ALPRAZolam [Xanax] 1 mg PO TID 02/24/16 Aspirin [Aspirin Adult Low Dose] 81 mg PO DAILY 02/24/16 Prasugrel [Effient] 10 mg PO DAILY 02/24/16 Albuterol Sulfate [Proair Hfa] 2 puff INH Q6H PRN #1 inhaler 03/14/17 Amoxicillin & Pot Clavulanate [Augmentin] 875 mg PO BID #20 tab 03/14/17 Benzonatate Perles [Tessalon Perles] 100 mg PO TID PRN #30 cap 03/14/17 Methylprednisolone [Medrol Dose Uri] 4 mg PO DAILY #1 tab 03/14/17 Quetiapine Fumarate [Seroquel] 300 mg PO BEDTIME 03/14/17 Tramadol HCl 50 mg PO QID 03/14/17 busPIRone HCL [Buspar] 15 mg PO TID 03/14/17 Review of Systems - Review of Systems Constitutional: Denies: chills, fever EENTM: States: ear pain, throat pain Respiratory: States: cough. Denies: short of breath Cardiology: States: no symptoms reported Gastrointestinal/Abdominal: States: no symptoms reported Genitourinary: States: no symptoms reported Musculoskeletal: States: no symptoms reported Skin: States: no symptoms reported Neurological: States: no symptoms reported Endocrine: States: no symptoms reported Hematologic/Lymphatic: States: no symptoms reported All other Systems: Reviewed and Negative Past Medical History (General) - Patient Medical History Hx Seizures: No Hx Stroke: Yes Hx Dementia: No Hx Asthma: No Hx of COPD: Yes Hx Cardiac Disorders: Yes - Stents, [place] Hx Congestive Heart Failure: No Hx Pacemaker: No Hx Hypertension: Yes Hx Thyroid Disease: No Hx Diabetes: No Hx Gastroesophageal Reflux: Yes Hx Renal Disease: No Hx Cancer: No Hx of HIV: No Hx Hepatitis C: No Hx MRSA: No Surgical History: cholecystectomy, Hysterectomy - Vaccination History Hx Tetanus, Diphtheria Vaccination: Yes Hx Influenza Vaccination: No Hx Pneumococcal Vaccination: No - Social History Hx Tobacco Use: Yes Hx Chewing Tobacco Use: No Hx Alcohol Use: No Hx Substance Use: No Hx Substance Use Treatment: No Hx Depression: No Feels Threatened In Home Enviroment: No Feels Threatened In a Relationship: No Hx Physical Abuse: No Hx Emotional Abuse: No Hx Suspected Abuse: No - Female History Patient : No Family Medical History - Family History Mother Family History: Unknown Living Status: Still Living Physical Exam - Physical Exam General Appearance: Alert, Ill Appearing Eye Exam: bilateral normal ENT Exam: normal ENT inspection, hearing grossly normal, TMs normal, pharynx normal, nasal congestion, other - BL FRONTAL SINUSES TTP. Neck: non-tender, full range of motion Respiratory: chest non-tender, no respiratory distress Cardiovascular/Chest: normal peripheral pulses, regular rate, rhythm Gastrointestinal/Abdominal: normal bowel sounds, non tender Extremity: non-tender, normal inspection Neurologic: alert, normal mood/affect Skin Exam: normal color, warm/dry Lymphatic: no adenopathy Progress - Results/Orders Results/Orders: CXR, RAPID FLU, AND STREP NEG. ACUTE BL FRONTAL SINUSITIS - RX'D ABX. RESULTING IN COPD EXACERBATION AND COUGH. Departure - Departure Clinical Impression: Acute frontal sinusitis, COPD exacerbation, Cough in adult, Tobacco use disorder Disposition: Discharge to Home or Self Care Condition: Good Departure Forms: ED Discharge - Pt. Copy, Patient Portal Self Enrollment Instructions: Smoking Cessation for Older Adults: It's Not Too Late! Diet: resume usual diet Activity: increase activity as tolerated Prescriptions: Albuterol Sulfate [Proair Hfa] 2 puff INH Q6H PRN #1 inhaler PRN Reason: Shortness Of Breath/Wheezing Amoxicillin & Pot Clavulanate [Augmentin] 875 mg PO BID #20 tab Benzonatate Perles [Tessalon Perles] 100 mg PO TID PRN #30 cap PRN Reason: Cough Methylprednisolone [Medrol Dose Uri] 4 mg PO DAILY #1 tab Home Medications: Ambulatory Orders ALPRAZolam [Xanax] 1 mg PO TID 02/24/16 Aspirin [Aspirin Adult Low Dose] 81 mg PO DAILY 02/24/16 Prasugrel [Effient] 10 mg PO DAILY 02/24/16 Albuterol Sulfate [Proair Hfa] 2 puff INH Q6H PRN #1 inhaler 03/14/17 Amoxicillin & Pot Clavulanate [Augmentin] 875 mg PO BID #20 tab 03/14/17 Benzonatate Perles [Tessalon Perles] 100 mg PO TID PRN #30 cap 03/14/17 Methylprednisolone [Medrol Dose Uri] 4 mg PO DAILY #1 tab 03/14/17 Quetiapine Fumarate [Seroquel] 300 mg PO BEDTIME 03/14/17 Tramadol HCl 50 mg PO QID 03/14/17 busPIRone HCL [Buspar] 15 mg PO TID 03/14/17 Additional Instructions: Please try to quit smoking. The smoking makes it so your lungs are more irritated, resulting in the severe cough.
[2017-03-14] MEDS ORDERED: LIDOCAINE 1% 10 ML VIAL INJ ONE (22:01)
[2017-03-14 22:03] VITALS: BP 110/69
== END 2017-03-14 22:06 | disposition home or self-care (01) ==
LOC: ER 19:52
DX: J44.1 Chronic obstructive pulmonary disease with (acute) exacerbation (principal); J01.10 Acute frontal sinusitis, unspecified; F17.200 Nicotine dependence, unspecified, uncomplicated; I25.2 Old myocardial infarction; Z98.61 Coronary angioplasty status; Z86.73 Personal history of transient ischemic attack (TIA), and cerebral infarction without residual deficits; Z88.2 Allergy status to sulfonamides; Z88.8 Allergy status to other drugs, medicaments and biological substances; Z79.82 Long term (current) use of aspirin; Z79.899 Other long term (current) drug therapy
CPT/HCPCS: 71010; 87070; 87502; 87880; J0696; J1030

== ENCOUNTER 2017-03-20 17:06 | Emergency (ER) | payer OTHER ==
[2017-03-20 17:23] VITALS: TEMP 98.9
[2017-03-20] MEDS ORDERED: ONDANSETRON INJ 4 MG/2 ML VIAL IV ONE (17:31)
[2017-03-20] MEDS ORDERED: SODIUM CHLORIDE 0.9% 1000ML 1,000 ML IVS ONE (17:31)
--- NOTE | 2017-03-20 17:34 | ED.PDOC ---
History of Present Illness - General Chief Complaint: Abdominal Pain Stated Complaint: abdominal pain, cough Time Seen by Provider: 03/20/17 17:15 Source: patient, RN notes reviewed, Vital Signs reviewed Exam Limitations: no limitations - History of Present Illness Initial Comments: Patient was seen here on 03/14/17 and diagnosed with sinusitis and placed on Amoxicillin. She now is having several days of diarrhea, nausea, vomiting and abdominal pain. She also is concerned that she may now have pneumonia. She is concerned the Amoxicillin is messing with her GI tract. Timing/Duration: constant Severity: moderate Improving Factors: nothing Worsening Factors: medication Associated Symptoms: cough, nausea/vomiting Allergies/Adverse Reactions: Allergies Statins Allergy (Verified 03/20/17 17:23) Sulfa Antibiotics Allergy (Verified 03/20/17 17:23) Home Medications: Ambulatory Orders ALPRAZolam [Xanax] 1 mg PO TID 02/24/16 Aspirin [Aspirin Adult Low Dose] 81 mg PO DAILY 02/24/16 Prasugrel [Effient] 10 mg PO DAILY 02/24/16 Albuterol Sulfate [Proair Hfa] 2 puff INH Q6H PRN #1 inhaler 03/14/17 Amoxicillin & Pot Clavulanate [Augmentin] 875 mg PO BID #20 tab 03/14/17 Benzonatate Perles [Tessalon Perles] 100 mg PO TID PRN #30 cap 03/14/17 Methylprednisolone [Medrol Dose Uri] 4 mg PO DAILY #1 tab 03/14/17 Quetiapine Fumarate [Seroquel] 300 mg PO BEDTIME 03/14/17 Tramadol HCl 50 mg PO QID 03/14/17 busPIRone HCL [Buspar] 15 mg PO TID 03/14/17 Azithromycin Tab [Zithromax] 250 mg PO DAILY #4 tab 03/20/17 Review of Systems - Review of Systems Constitutional: States: no symptoms reported EENTM: States: no symptoms reported Respiratory: States: cough, short of breath Cardiology: States: no symptoms reported Gastrointestinal/Abdominal: States: abdominal pain, diarrhea, nausea, vomiting Musculoskeletal: States: no symptoms reported Skin: States: no symptoms reported Neurological: States: headache All other Systems: No Change from Baseline Past Medical History (General) - Patient Medical History Hx Seizures: No Hx Stroke: Yes Hx Dementia: No Hx Asthma: No Hx of COPD: Yes Hx Cardiac Disorders: Yes - Stents, SD Hx Congestive Heart Failure: No Hx Pacemaker: No Hx Hypertension: Yes Hx Thyroid Disease: No Hx Diabetes: No Hx Gastroesophageal Reflux: Yes Hx Renal Disease: No Hx Cancer: No Hx of HIV: No Hx Hepatitis C: No Hx MRSA: No Surgical History: cholecystectomy, other - Vaccination History Hx Tetanus, Diphtheria Vaccination: Yes Hx Influenza Vaccination: No Hx Pneumococcal Vaccination: No - Social History Hx Tobacco Use: Yes Hx Chewing Tobacco Use: No Hx Alcohol Use: No Hx Substance Use: No Hx Substance Use Treatment: No Hx Depression: No Hx Physical Abuse: No Hx Emotional Abuse: No Hx Suspected Abuse: No - Female History Patient is a Female of Child Bearing Age (10 -59 yrs old): Yes Patient : No Family Medical History - Family History Mother Family History: Unknown Living Status: Still Living Physical Exam - Physical Exam General Appearance: Alert, Comfortable, No apparent distress, Well Developed, Well Groomed, Well Hydrated, Well Nourished Neck: non-tender, full range of motion, supple, normal inspection Respiratory: no respiratory distress, no accessory muscle use, rhonchi - RLL Cardiovascular/Chest: regular rate, rhythm, no gallop, no murmur Gastrointestinal/Abdominal: normal bowel sounds, non tender, soft, no organomegaly, no pulsatile mass Extremity: normal range of motion, non-tender, normal inspection Neurologic: alert, normal mood/affect, oriented x 3 Skin Exam: normal color, warm/dry Comments: Vital Signs 03/20/17 17:15 Temperature 98.9 F Pulse Rate [ 91 H pulse ox] Respiratory 20 Rate Blood Pressure 104/74 [left arm] O2 Sat by Pulse 95 Oximetry Progress - Progress Progress: 03/20/17 20:22 Suspect GI upset is either infectious or due to antibiotics for sinusitis. Labs show low potassium and elevated WBC. Otherwise normal CXR and unremarkable labs. Patient requested IV Potassium be stopped. She got ~1/2 of the bag - 20meq, will give another 20meq PO and finish IV fluids. - Results/Orders Results/Orders: Laboratory Tests 03/20/17 03/20/17 17:31 17:42 WBC 15.1 H RBC 5.09 Hgb 15.2 Hct 45.2 MCV 88.8 MCH 29.8 MCHC 33.7 RDW 14.5 Plt Count 203 MPV 7.2 L Absolute Neuts (auto) 10.50 H Absolute Lymphs (auto) 3.20 Absolute Monos (auto) 1.00 H Absolute Eos (auto) 0.20 Absolute Basos (auto) 0.20 H Neutrophils % 69.9 Lymphocytes % 21.2 Monocytes % 6.6 Eosinophils % 1.1 Basophils % 1.2 Sodium 138 Potassium 2.8 L Chloride 100 L Carbon Dioxide 29 Anion Gap 11.8 L BUN 20 H Creatinine 0.81 BUN/Creatinine Ratio 24.7 H Random Glucose 114 H Serum Osmolality 279.2 Calcium 8.9 Total Bilirubin 0.4 AST 25 ALT 22 Alkaline Phosphatase 117 Serum Total Protein 7.6 Albumin 4.3 Globulin 3.3 Albumin/Globulin Ratio 1.3 Amylase 56 Lipase 32 - EKG/XRAY/CT XRAY: chest - No acute process per Radiologist Departure - Departure Clinical Impression: Gastroenteritis Acute frontal sinusitis Qualifiers: Recurrence: non-recurrent Qualified Code(s): J01.10 - Acute frontal sinusitis, unspecified Time of Disposition: 20:43 Disposition: Discharge to Home or Self Care Condition: Good Departure Forms: Patient Portal Self Enrollment, ED Discharge - Pt. Copy Instructions: DI for Viral Gastroenteritis -- Adult Diet: resume usual diet Activity: ambulate only with walker Referrals: Rosendo Lee MD [Primary Care Provider] - 1-2 Weeks Prescriptions: Azithromycin Tab [Zithromax] 250 mg PO DAILY #4 tab Home Medications: Ambulatory Orders ALPRAZolam [Xanax] 1 mg PO TID 02/24/16 Aspirin [Aspirin Adult Low Dose] 81 mg PO DAILY 02/24/16 Prasugrel [Effient] 10 mg PO DAILY 02/24/16 Albuterol Sulfate [Proair Hfa] 2 puff INH Q6H PRN #1 inhaler 03/14/17 Amoxicillin & Pot Clavulanate [Augmentin] 875 mg PO BID #20 tab 03/14/17 Benzonatate Perles [Tessalon Perles] 100 mg PO TID PRN #30 cap 03/14/17 Methylprednisolone [Medrol Dose Uri] 4 mg PO DAILY #1 tab 03/14/17 Quetiapine Fumarate [Seroquel] 300 mg PO BEDTIME 03/14/17 Tramadol HCl 50 mg PO QID 03/14/17 busPIRone HCL [Buspar] 15 mg PO TID 03/14/17 Azithromycin Tab [Zithromax] 250 mg PO DAILY #4 tab 03/20/17 Additional Instructions: Stop Amoxicillin Stop Smoking
--- NOTE | 2017-03-20 17:57 | RAD ---
Examination: XR CHEST 2 VIEWS dated 03/20/2017 5:31 PM CDT History: Cough/conjustion Comparison: 03/14/2017 Technique: Frontal and lateral views of the chest Findings: Mild platelike atelectasis or focal scarring of the right upper lung zone. Lungs otherwise clear. No pneumothorax or pleural effusion. The cardiomediastinal silhouette is within normal limits. Impression: Stable right upper lobe platelike atelectasis or focal scarring. Otherwise no acute disease. Electronically signed by: Pantera Pretty MD 03/20/2017 5:56 PM CDT
[2017-03-20] MEDS ORDERED: IPRATROPIUM/ALBUTEROL 3 ML VIAL NEB ONE (18:01)
[2017-03-20] MEDS ORDERED: KCL 40 MEQ/WATER FOR INJECTION 40 MEQ in PREMIX BAG 1 BAG IVPB ONE (18:06)
[2017-03-20] MEDS ORDERED: KCL 40 MEQ/WATER FOR INJECTION 100 ML IVPB ONE (18:24)
[2017-03-20 18:43] VITALS: O2SAT 96
[2017-03-20] MEDS ORDERED: KETOROLAC TROMETHAMINE INJ 30 MG/ML VIAL IV ONE (19:03)
[2017-03-20] MEDS ORDERED: POTASSIUM CHLORIDE 20 MEQ TAB PO ONE (20:25)
[2017-03-20] MEDS ORDERED: AZITHROMYCIN 250 MG TAB PO ONE (20:43)
[2017-03-20 21:11] VITALS: BP 127/89
== END 2017-03-20 21:12 | disposition home or self-care (01) ==
LOC: ER 17:06
DX: K52.9 Noninfective gastroenteritis and colitis, unspecified (principal); J01.10 Acute frontal sinusitis, unspecified; Z87.891 Personal history of nicotine dependence; I25.2 Old myocardial infarction; J44.9 Chronic obstructive pulmonary disease, unspecified; I10 Essential (primary) hypertension; K21.9 Gastro-esophageal reflux disease without esophagitis; Z86.73 Personal history of transient ischemic attack (TIA), and cerebral infarction without residual deficits; Z98.61 Coronary angioplasty status; Z79.82 Long term (current) use of aspirin; Z79.899 Other long term (current) drug therapy; Z88.2 Allergy status to sulfonamides; Z88.8 Allergy status to other drugs, medicaments and biological substances
CPT/HCPCS: 71020; 80053; 82150; 83690; 85025; 94640; J1885; J2405; J3480; J7030; J7620; Q0144

== ENCOUNTER 2017-04-24 17:30 | Emergency (ER) | payer MEDICARE, MEDICAID ==
[2017-04-24 17:50] VITALS: TEMP 99
[2017-04-24] MEDS ORDERED: PLAIN PACKING STRIP 1 1 EA BTTL TOP ONE (17:57)
--- NOTE | 2017-04-24 18:32 | ED.PDOC ---
History of Present Illness - General Chief Complaint: Skin/Abrasion/Tear Stated Complaint: abscess to left arm Time Seen by Provider: 04/24/17 17:33 Source: patient Exam Limitations: no limitations - History of Present Illness Initial Comments: Wendy Campos 56 y/o female stated that she had insect bite on her left elbow 3 days ago but gradually got bigger and more painful.No fever or chills ,but with pain on moving left arm Timing/Duration: other - 3 days ago Location: extremities - left arm Improving Factors: rest Worsening Factors: movement Associated Symptoms: other - abscess Allergies/Adverse Reactions: Allergies Statins Allergy (Verified 03/20/17 17:23) Sulfa Antibiotics Allergy (Verified 03/20/17 17:23) Home Medications: Ambulatory Orders ALPRAZolam [Xanax] 1 mg PO TID 02/24/16 Aspirin [Aspirin Adult Low Dose] 81 mg PO DAILY 02/24/16 Prasugrel [Effient] 10 mg PO DAILY 02/24/16 Albuterol Sulfate [Proair Hfa] 2 puff INH Q6H PRN #1 inhaler 03/14/17 Amoxicillin & Pot Clavulanate [Augmentin] 875 mg PO BID #20 tab 03/14/17 Benzonatate Perles [Tessalon Perles] 100 mg PO TID PRN #30 cap 03/14/17 Methylprednisolone [Medrol Dose Uri] 4 mg PO DAILY #1 tab 03/14/17 Quetiapine Fumarate [Seroquel] 300 mg PO BEDTIME 03/14/17 Tramadol HCl 50 mg PO QID 03/14/17 busPIRone HCL [Buspar] 15 mg PO TID 03/14/17 Azithromycin Tab [Zithromax] 250 mg PO DAILY #4 tab 03/20/17 Clindamycin HCl 300 mg PO BID #30 cap 04/24/17 Review of Systems - Review of Systems Skin: States: see HPI All other Systems: Reviewed and Negative, No Change from Baseline Past Medical History (General) - Patient Medical History Hx Seizures: No Hx Stroke: No Hx Dementia: No Hx Asthma: No Hx of COPD: No Hx Cardiac Disorders: Yes - [place] stents x 3 Hx Congestive Heart Failure: No Hx Pacemaker: No Hx Hypertension: Yes Hx Thyroid Disease: No Hx Diabetes: No Hx Gastroesophageal Reflux: No Hx Renal Disease: No Hx Cancer: No Hx of HIV: No Hx Hepatitis C: No Hx MRSA: Yes MRSA Source:: Wound Surgical History: other - cardiac stents - Vaccination History Hx Tetanus, Diphtheria Vaccination: Yes Hx Influenza Vaccination: No Hx Pneumococcal Vaccination: No - Social History Hx Tobacco Use: Yes Hx Chewing Tobacco Use: No Hx Alcohol Use: No Hx Substance Use: No Hx Substance Use Treatment: No Hx Depression: Yes Hx Physical Abuse: No Hx Emotional Abuse: No Hx Suspected Abuse: No - Female History Patient : No - Triage Comment ED Triage Comment: Pt states she has staph to left arm. States she believes has gotten bitten by spider. Family Medical History - Family History Mother Family History: Unknown Living Status: Still Living Hx Family Hypertension: Yes - dad Hx Cardiac Disease: Yes - dad/sisters Hx Family Cancer: Yes - sister/dad Physical Exam - Physical Exam General Appearance: Alert, Comfortable, No apparent distress Eyes, Ears, Nose, Throat Exam: PERRL/EOMI, normal ENT inspection Neck: non-tender, supple Cardiovascular/Chest: normal peripheral pulses, regular rate, rhythm, no murmur Respiratory: lungs clear, normal breath sounds Gastrointestinal/Abdominal: non tender, soft, no organomegaly Back Exam: normal inspection Extremity: no pedal edema, no calf tenderness Neurologic: alert, oriented x 3 Skin Exam: warm/dry, normal color Skin Problem Location: upper extremities - left arm Skin Character: abscess - left arm, erythema, swelling, tenderness Lymphatic: no adenopathy Progress - Progress Progress: 04/24/17 18:34 Last Vital Signs Temp 99.0 F 04/24/17 17:45 Pulse 77 04/24/17 17:45 Resp 18 04/24/17 17:45 BP 113/31 04/24/17 17:45 Pulse Ox 97 04/24/17 17:45 Procedures - Incision and Drainage #1 Site: arm left Procedure and Prep: betadine prep, sterile drapes applied, gauze wick placed, irrigated, wound culture collected, pus drained - 5 ml Blade Size: 11 Departure - Departure Clinical Impression: Cutaneous abscess of extremity Qualifiers: Site of cutaneous abscess of extremity: upper extremity Laterality: left Qualified Code(s): L02.414 - Cutaneous abscess of left upper limb Time of Disposition: 18:39 Disposition: Discharge to Home or Self Care Departure Forms: ED Discharge - Pt. Copy, Patient Portal Self Enrollment Instructions: DI for Skin Abscess, DI for Incision and Drainage of a Skin Abscess Referrals: Rosendo Lee MD [Primary Care Provider] - 1-2 Weeks Prescriptions: Clindamycin HCl 300 mg PO BID #30 cap Home Medications: Ambulatory Orders ALPRAZolam [Xanax] 1 mg PO TID 02/24/16 Aspirin [Aspirin Adult Low Dose] 81 mg PO DAILY 02/24/16 Prasugrel [Effient] 10 mg PO DAILY 02/24/16 Albuterol Sulfate [Proair Hfa] 2 puff INH Q6H PRN #1 inhaler 03/14/17 Amoxicillin & Pot Clavulanate [Augmentin] 875 mg PO BID #20 tab 03/14/17 Benzonatate Perles [Tessalon Perles] 100 mg PO TID PRN #30 cap 03/14/17 Methylprednisolone [Medrol Dose Uri] 4 mg PO DAILY #1 tab 03/14/17 Quetiapine Fumarate [Seroquel] 300 mg PO BEDTIME 03/14/17 Tramadol HCl 50 mg PO QID 03/14/17 busPIRone HCL [Buspar] 15 mg PO TID 03/14/17 Azithromycin Tab [Zithromax] 250 mg PO DAILY #4 tab 03/20/17 Clindamycin HCl 300 mg PO BID #30 cap 04/24/17 Additional Instructions: REMOVAL OF PACKING 04/26/2017 [facility] ER AM
[2017-04-24] MEDS ORDERED: CLINDAMYCIN PHOSPHATE 150 MG/ML VIAL IM ONE (18:36)
[2017-04-24] MEDS ORDERED: CLINDAMYCIN HCL CAP 150 MG CAP PO ONE (18:36)
[2017-04-24] MEDS ORDERED: HYDROcodone 10MG/APAP 325MG 1 EA TAB PO ONE (18:37)
[2017-04-24] MEDS ORDERED: HYDROCOD/APAP 7.5/325 (ER DISP) #3 TAB PO ONE (18:37)
[2017-04-24 19:15] VITALS: BP 131/74; O2SAT 95
== END 2017-04-24 19:16 | disposition home or self-care (01) ==
LOC: ER 17:30
DX: L02.414 Cutaneous abscess of left upper limb (principal); I25.2 Old myocardial infarction; I10 Essential (primary) hypertension; Z98.61 Coronary angioplasty status; Z79.82 Long term (current) use of aspirin; Z79.899 Other long term (current) drug therapy; Z88.2 Allergy status to sulfonamides; Z88.8 Allergy status to other drugs, medicaments and biological substances; Z87.891 Personal history of nicotine dependence
CPT/HCPCS: 87070; J3490

== ENCOUNTER 2017-04-25 17:43 | Inpatient (IN) | payer MEDICARE, MEDICAID ==
[2017-04-25] MEDS ORDERED: SODIUM CHLORIDE 0.9% 1000ML 1,000 ML IVS ONE ×2 (17:57→22:43)
[2017-04-25] MEDS ORDERED: ONDANSETRON ODT 8 MG TAB SL ONE (17:57)
[2017-04-25] MEDS ORDERED: ERTAPENEM 1 GM in SODIUM CHL 0.9% 50ML MIN-BAG+ 50 ML IVPB ONE (18:01)
--- NOTE | 2017-04-25 18:14 | RAD ---
EXAM DESCRIPTION: Chest,1 View CLINICAL HISTORY: recent pna COMPARISON: 03/20/2017 FINDINGS: Cardiac silhouette is within normal limits. There is no focal parenchymal or pleural disease. Visualized osseous structures are within normal limits. IMPRESSION: No evidence of acute cardiopulmonary disease. Electronically signed by: Loyd Davis 04/25/2017 6:13 PM [facility] [place]
--- NOTE | 2017-04-25 19:39 | ED.PDOC ---
History of Present Illness - General Chief Complaint: Wound Recheck Stated Complaint: left arm abscess Time Seen by Provider: 04/25/17 17:54 Source: patient Exam Limitations: no limitations - History of Present Illness Initial Comments: the patient is a 56-year-old female presenting to the emergency room for the second time in 2 days. She was seen here last night for an abscess to her inner upper arm just above the elbow. An I&D was performed and packing was placed and the patient was appropriately started on antibiotic therapy. Initial culture from that over the last 24 hours appears to be growing a significant amount of anaerobic bacteria. The patient showed back up here this afternoon secondary to nausea and vomiting body aches and some mild shortness of breath. She did recently have a pneumonia and she is concerned about the pneumonia coming back. Vital signs actually looks stable at this point. She does have some significant discomfort. Timing/Duration: unsure Severity: moderate Improving Factors: nothing Worsening Factors: nothing Associated Symptoms: diaphoresis, fever/chills, malaise, nausea/vomiting, shortness of breath Allergies/Adverse Reactions: Allergies Statins Allergy (Verified 04/25/17 18:05) Sulfa Antibiotics Allergy (Verified 04/25/17 18:05) Home Medications: Ambulatory Orders ALPRAZolam [Xanax] 1 mg PO TID 02/24/16 Aspirin [Aspirin Adult Low Dose] 81 mg PO DAILY 02/24/16 Prasugrel [Effient] 10 mg PO DAILY 02/24/16 Albuterol Sulfate [Proair Hfa] 2 puff INH Q6H PRN #1 inhaler 03/14/17 Amoxicillin & Pot Clavulanate [Augmentin] 875 mg PO BID #20 tab 03/14/17 Benzonatate Perles [Tessalon Perles] 100 mg PO TID PRN #30 cap 03/14/17 Methylprednisolone [Medrol Dose Uri] 4 mg PO DAILY #1 tab 03/14/17 Quetiapine Fumarate [Seroquel] 300 mg PO BEDTIME 03/14/17 Tramadol HCl 50 mg PO QID 03/14/17 busPIRone HCL [Buspar] 15 mg PO TID 03/14/17 Azithromycin Tab [Zithromax] 250 mg PO DAILY #4 tab 03/20/17 Clindamycin HCl 300 mg PO BID #30 cap 04/24/17 Review of Systems - Review of Systems Constitutional: States: fever, malaise EENTM: States: no symptoms reported Respiratory: States: short of breath Cardiology: States: no symptoms reported Gastrointestinal/Abdominal: States: nausea, vomiting Genitourinary: States: no symptoms reported Musculoskeletal: States: see HPI Skin: States: see HPI Neurological: States: anxiety Endocrine: States: no symptoms reported All other Systems: No Change from Baseline Past Medical History (General) - Patient Medical History Hx Seizures: No Hx Stroke: No Hx Dementia: No Hx Asthma: No Hx of COPD: Yes Hx Cardiac Disorders: Yes - [place] stents x 3 Hx Congestive Heart Failure: No Hx Pacemaker: No Hx Hypertension: Yes Hx Thyroid Disease: No Hx Diabetes: No Hx Gastroesophageal Reflux: No - gasrtic ulcer Hx Renal Disease: No Hx Cancer: No Hx of HIV: No Hx Hepatitis C: No Hx MRSA: Yes MRSA Source:: Wound Surgical History: cholecystectomy, Hysterectomy, other - Vaccination History Hx Tetanus, Diphtheria Vaccination: Yes Hx Influenza Vaccination: Yes Hx Pneumococcal Vaccination: Yes - Social History Hx Tobacco Use: Yes Hx Chewing Tobacco Use: No Hx Alcohol Use: No Hx Substance Use: No Hx Substance Use Treatment: No Hx Depression: Yes Hx Physical Abuse: No Hx Emotional Abuse: No Hx Suspected Abuse: No - Female History Patient is a Female of Child Bearing Age (10 -59 yrs old): No Patient : No Family Medical History - Family History Mother Family History: Unknown Living Status: Still Living Hx Family Hypertension: Yes - dad Hx Cardiac Disease: Yes - dad/sisters Hx Family Cancer: Yes - sister/dad Physical Exam - Physical Exam General Appearance: Alert, Anxious Eye Exam: bilateral normal Ears, Nose, Throat: hearing grossly normal, normal ENT inspection, normal pharynx Neck: supple Respiratory: normal breath sounds, no respiratory distress, no accessory muscle use Cardiovascular/Chest: normal peripheral pulses, regular rate, rhythm, no edema Peripheral Pulses: radial,right: 2+, radial,left: 2+, dorsalis pedis,right: 2+, dorsalis pedis,left: 2+ Gastrointestinal/Abdominal: soft Rectal Exam: deferred Extremity: normal range of motion, no pedal edema, normal capillary refill 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 I see no evidence of erythema progressing up the arm. I feel no air crepitusprogressing up or down the arm. Packing is removed. Comments: Vital Signs - 24 hr 04/25/17 17:50 Temperature 98.0 F Pulse Rate [ 68 pulse ox] Respiratory 18 Rate Blood Pressure 103/72 [Right Arm] O2 Sat by Pulse 96 Oximetry Progress - Progress Progress: 04/25/17 19:40 the patient's 56-year-old female presenting to the emergency room secondary to abscess and cellulitis to left upper extremity with some systemic symptoms likely related. The patient does not appear frankly septic however she may be having nausea and vomiting related to the illness. Blood culture has been performed. White blood cell count is reassuring. Given the fact that the wound culture is growing out significant anaerobic bacteria the patient is being given a dose of ertapenem. She is already taking clindamycin. She has received some IV fluids and nausea medications. The patient will be admitted for further monitoring and further antibiotic therapy. Further therapy should be guided by culture results. - Results/Orders Results/Orders: Laboratory Tests 04/25/17 04/25/17 04/25/17 17:57 18:05 18:05 WBC 8.1 RBC 4.58 Hgb 13.5 Hct 40.8 MCV 89.1 MCH 29.4 MCHC 33.2 RDW 14.7 H Plt Count 238 MPV 7.6 Absolute Neuts (auto) 4.90 Absolute Lymphs (auto) 2.40 Absolute Monos (auto) 0.50 Absolute Eos (auto) 0.20 Absolute Basos (auto) 0.10 Neutrophils % 60.2 Lymphocytes % 29.4 Monocytes % 6.3 Eosinophils % 3.0 Basophils % 1.1 Sodium 140 Potassium 3.5 L Chloride 101 Carbon Dioxide 29 Anion Gap 13.5 BUN 11 Creatinine 0.94 BUN/Creatinine Ratio 11.7 Random Glucose 108 H Serum Osmolality 279.3 Calcium 9.3 Magnesium 1.8 Total Bilirubin 0.3 AST 32 ALT 21 Alkaline Phosphatase 103 Creatine Kinase 170 H CK-MB (CK-2) 1.7 CK-MB (CK-2) % Not Reportable Troponin I < 0.02 Serum Total Protein 7.6 Albumin 4.1 Globulin 3.5 Albumin/Globulin Ratio 1.2 Amylase 39 Lipase 28 chest x-ray shows no evidence of any overt pneumonia. There are chronic changes of COPD. X-ray of the elbow is still pendingfinal read. Departure - Departure Clinical Impression: Encounter for recheck of abscess following incision and drainage Cellulitis Qualifiers: Site of cellulitis: extremity Site of cellulitis of extremity: upper extremity Laterality: left Qualified Code(s): L03.114 - Cellulitis of left upper limb Disposition: Admit Patient Referrals: Rosendo Lee MD [Primary Care Provider] - 1-2 Weeks Home Medications: Ambulatory Orders ALPRAZolam [Xanax] 1 mg PO TID 02/24/16 Aspirin [Aspirin Adult Low Dose] 81 mg PO DAILY 02/24/16 Prasugrel [Effient] 10 mg PO DAILY 02/24/16 Albuterol Sulfate [Proair Hfa] 2 puff INH Q6H PRN #1 inhaler 03/14/17 Amoxicillin & Pot Clavulanate [Augmentin] 875 mg PO BID #20 tab 03/14/17 Benzonatate Perles [Tessalon Perles] 100 mg PO TID PRN #30 cap 03/14/17 Methylprednisolone [Medrol Dose Uri] 4 mg PO DAILY #1 tab 03/14/17 Quetiapine Fumarate [Seroquel] 300 mg PO BEDTIME 03/14/17 Tramadol HCl 50 mg PO QID 03/14/17 busPIRone HCL [Buspar] 15 mg PO TID 03/14/17 Azithromycin Tab [Zithromax] 250 mg PO DAILY #4 tab 03/20/17 Clindamycin HCl 300 mg PO BID #30 cap 04/24/17 Decision To Admit - Decistion To Admit Decision to Admit Reason: Medical Nature Decision to Admit Date: 04/25/17 Decision to Admit Time: 19:42
--- NOTE | 2017-04-25 20:23 | RAD ---
EXAM DESCRIPTION: Elbow,Left 2 Views CLINICAL HISTORY: abscess inner elbow area s/p drainage COMPARISON: None FINDINGS: 2 views were submitted. No fracture or dislocation is identified. Bone marrow attenuation is unremarkable. No radiopaque foreign body is identified. IMPRESSION: No acute fracture or dislocation. Electronically signed by: Loyd Davis 04/25/2017 8:22 PM [facility]
--- NOTE | 2017-04-25 20:30 | HP ---
HISTORY OF PRESENT ILLNESS: This 56 year-old white female is admitted to the hospital from the Emergency Room because of failure to improve and failing outpatient therapy since an incision and drainage of an abscess and cellulitis of the left elbow with initiated treatment from last night. She apparently started about 4 days ago with an itching spot which was possibly an insect bite that she scratched. Whether the skin broke with her scratching she was not aware of. It got progressively worse with swelling, redness, tenderness and pain until the point where it had to be incised and drained of a purulent material last evening in the Emergency Room. She was started on Clindamycin by mouth. Her condition steadily worsened until she re-entered the Emergency Room this evening and is to be admitted to the hospital because of her past history of significant cavitary lesions in her lungs, but also the fact that her current organisms from her incision and drainage last evening appear to be an anaerobic organism that may not be fully treatable by the usual oral routes. The patient is admitted to the hospital after a dose of Invanz after initial cultures were again obtained with blood cultures as well. Other lab did reveal a low potassium of 3.5 while white count was normal but the patient may have some underlying immune deficiency presentations with her previous history of drug use and failure to respond in the outpatient treatment. PAST MEDICAL HISTORY: 1. Coronary artery disease with 3 stents. 2. Chronic obstructive pulmonary disease in a smoker still smoking. 3. Elevated cholesterol. 4. It is of note that she did have a myocardial infarction in October of 2015. 5. May also have had some bipolar symptoms in the past. PAST SURGICAL HISTORY: 1. Gallbladder. 2. Three sections. 3. Bladder suspension. 4. Hysterectomy. 5. Breast reduction. 6. Lumbar spine surgery. 7. Coronary stents on 3 occasions. PAST OBSTETRIC HISTORY: 3 para 3 with no miscarriages and 2 of her children are still alive. CURRENT MEDICATIONS: Please refer to medications list that is verified by the nurses. ALLERGIES: SULFA AND STATIN MEDICATIONS. SOCIAL HISTORY: She states that she has stopped smoking in the past but has currently restarted and now at 3 to 4 cigarettes per day. 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 REVIEW OF SYSTEMS: Her weight has generally been about 210 pounds. She has had some fever, chills and sweats associated with her current symptoms in her left elbow infection over the last 4 days. HEENT: She does have some decreased vision with macular degeneration having been made in the past. LUNGS: Some shortness of breath upon exertion with history of significant pneumonia with cavitary lesions requiring transfer to [facility] for ongoing treatment. GASTROINTESTINAL: She has been nauseated with her current illness. No emesis. No blood in the stools. GENITOURINARY: No dysuria. NEUROLOGIC: No focal neurological deficits at this time except for pain in her left elbow. PHYSICAL EXAMINATION: VITAL SIGNS: Temperature 98, pulse 68, blood pressure 103/72, pulse oximetry 96 % on room air. Her weight is 95.3 kilos. GENERAL: The patient is fairly awake and alert. HEENT: History of macular degeneration is noted by history. While the patient speaks, she frequently protrudes her tongue as a habit while speaking. NECK: Otherwise supple. CHEST: Lungs have some diminished breath sounds with some rhonchi. CARDIOVASCULAR: Heart tones are fairly regular without any significant gallops. ABDOMEN: Soft with no organomegaly, masses or tenderness at this time though slightly distended. EXTREMITIES: Significant area of swelling, induration, erythema on the medial aspect of her left elbow over the antecubital space anteromedially. There is an approximate 1 cm area of incision where drainage was obtained last evening for culture with nothing specifically growing at this time. NEUROLOGIC: No focal neurological weaknesses otherwise noted. RADIOLOGY: Chest x-ray is performed and shows no evidence of an acute cardiopulmonary process. X-ray of the elbow is pending. ASSESSMENT: 1. Acute infection left medial antecubital space post incision and drainage 24 hours, worsening, failing outpatient therapy with anaerobic cultures positive with final diagnoses and identification of the organism still pending. 2. Mild hypokalemia with supplementation to be initiated. 3. History of bipolar in the past. 4. History of coronary artery disease with coronary stents times 3. 5. Chronic obstructive pulmonary disease in a chronic smoker. 6. Hyperlipidemia. 7. History of macular degeneration. PLAN: The patient will be admitted. In the Emergency Room, she was started on an infusion of Invanz 1 gram and this will be changed tomorrow at noon to Meropenem 1 gram every 8 hours. To this will be added vancomycin per Pharmacy protocol at about 1 gram every 12 hours pending culture results hopefully soon to assist with antibiotic usage and determination. Will use dilute Hibiclens to clean the area. Will check MRSA nasal culture for surveillance. Continue with medication nebulizers. Routine DVT prophylaxis. Potassium supplementation will be initiated. Close followup necessary and continued IV therapy again because of the patient's fairly significant condition to help prevent it from getting worse. [facility][id number] [facility]
[2017-04-25] MEDS ORDERED: SODIUM CHLORIDE 0.9% 1000ML 1,000 ML ONE (20:31)
[2017-04-25] MEDS ORDERED: LEVALBUTEROL NEBS 1.25 MG/3 ML VIAL NEB PRN (21:30)
[2017-04-25] MEDS ORDERED: IV SET AND CAP CHANGE INJ INJ SCH (21:30)
[2017-04-25] MEDS ORDERED: ONDANSETRON INJ 4 MG/2 ML VIAL IV PRN (21:30)
[2017-04-25] MEDS ORDERED: MAGNESIUM HYDROXIDE 30 ML UD PO PRN (21:30)
[2017-04-25] MEDS ORDERED: ALUM & MAG HYDROX-SIMETHICONE 30 ML UD PO PRN (21:30)
[2017-04-25] MEDS ORDERED: ERTAPENEM 1 GM VIAL ONE (21:31)
[2017-04-25] MEDS ORDERED: SODIUM CHLORIDE 0.9% 50ML 50 ML ONE (21:46)
--- NOTE | 2017-04-25 21:58 | PCM.CORE ---
Physician DVT/VTE - 2 Moderate Risk Treatments: Sequential Compression Device Pharmacological: Enoxaparin 40mg SQ Daily
[2017-04-25] MEDS ORDERED: VANCOMYCIN PER PHARMACY IVPB SCH (22:00)
[2017-04-25] MEDS ORDERED: IPRATROPIUM/ALBUTEROL 3 ML VIAL INH SCH (22:00)
[2017-04-25] MEDS ORDERED: QUEtiapine FUMARATE 100 MG TAB ONE (22:30)
[2017-04-25] MEDS ORDERED: VANCOMYCIN HCL INJ 1,000 MG VIAL IVPB ONE (22:31)
[2017-04-25] MEDS ORDERED: SODIUM CHLORIDE 0.9% 250ML 250 ML ONE (22:32)
[2017-04-25] MEDS: POTASSIUM CHLORIDE 10 MEQ TAB PO SCH (22:43)
[2017-04-25] MEDS: SODIUM CHLORIDE 0.9% 1000ML 1,000 ML IVS PRN (22:43)
[2017-04-25] MEDS: ENOXAPARIN SODIUM 40 MG/0.4 ML SYG SUBCU SCH (22:43)
[2017-04-25] MEDS: ALPRAZolam 0.5 MG TAB PO PRN (22:43)
[2017-04-25] MEDS: VANCOMYCIN HCL INJ 1,000 MG in SODIUM CHLORIDE 0.9% 250ML 250 ML IVPB SCH (22:44)
[2017-04-26] MEDS ORDERED: POTASSIUM CHLORIDE 20 MEQ TAB ONE (07:44)
[2017-04-26] MEDS ORDERED: CHLORHEXIDINE GLUCONATE 4 % 15 ML UD TOP ONE (07:44)
[2017-04-26] MEDS ORDERED: ALPRAZolam 0.5 MG TAB ONE (07:52)
[2017-04-26] MEDS: POTASSIUM CHLORIDE 10 MEQ TAB PO SCH ×2 (07:53→17:00)
[2017-04-26] MEDS: OMEPRAZOLE CAP 20 MG CAP PO SCH (07:53)
[2017-04-26] MEDS: ALPRAZolam 0.5 MG TAB PO PRN ×2 (07:53→17:04)
[2017-04-26] MEDS: IPRATROPIUM/ALBUTEROL 3 ML VIAL NEB SCH ×4 (08:43→20:42)
[2017-04-26] MEDS ORDERED: SODIUM CHLORIDE 0.9% 250ML 250 ML ONE (09:41)
[2017-04-26] MEDS ORDERED: VANCOMYCIN HCL INJ 1,000 MG VIAL IVPB ONE (09:42)
[2017-04-26] MEDS: CHLORHEXIDINE GLUC 4% 15ML 45 ML, WATER FOR IRRIGATION 1,000 ML TOP SCH ×2 (10:04)
[2017-04-26] MEDS: VANCOMYCIN HCL INJ 1,000 MG in SODIUM CHLORIDE 0.9% 250ML 250 ML IVPB SCH (10:21)
--- NOTE | 2017-04-26 10:51 | PN ---
DATE: 04/26/17 SUBJECTIVE: The left arm is still painful, but less painful compared to last night. She was able to get some sleep after 1 AM this morning. She is again encouraged to increase activity level. Appetite is fairly good though the patient is currently edentulous while her teeth and dentures are being repaired in the dental office. OBJECTIVE: VITAL SIGNS: Afebrile. Pulse 50. Blood pressure 104/62. Pulse oximetry 92% on room air. EXTREMITIES: The left arm persists in having the area of swelling, induration and erythema at the antecubital space with the incision and drainage site still open with some bleeding and drainage still present. Cleansing will continue. Dressing changes to continue. LABORATORY: Cultures reveal significant growth only on the anaerobic plates with the specimen having been sent off to [facility] for further identification because it is beyond our lab's ability at this time to fully identify this anaerobic infection. There is no evidence at this time of any type of aerobic or staph aureus infection. Therefore, the vancomycin adjunctive antibiotic will be stopped. Await C-reactive protein in the morning. Lab also shows a diminishment in the potassium, down to 3.2 with supplementation to be increased. Blood cultures are negative thus far. ASSESSMENT: 1. Acute infection with abscess and cellulitis, left elbow at medial antecubital location, post incision and drainage, failing outpatient therapy with evidence of an anaerobic growth on culture with specimen being sent to reference lab for identification. 2. Mild hypokalemia, showing some worsening with supplementation to be increased. 3. History of bipolar in the past. 4. History of coronary artery disease with coronary stents times 3. 5. Chronic obstructive pulmonary disease in a chronic smoker, now stopping on nicotine patches. 6. Hyperlipidemia. 7. History of macular degeneration. PLAN: We will stop the vancomycin and continue meropenem parenterally. Await MRSA nasal culture surveillance. Continue DVT prophylaxis. Await further culture ID from [facility] on the lab specimen. Continue with local treatment and continue with parenteral antibiotic therapy. Observe closely. Increased activity level encouraged. [facility][id number] [facility]
[2017-04-26] MEDS ORDERED: MEROPENEM 1 GM VIAL IVPB ONE ×2 (13:48→20:22)
[2017-04-26] MEDS ORDERED: SODIUM CHL 0.9% 50ML MIN-BAG+ 50 ML IVPB ONE ×2 (13:48→20:22)
[2017-04-26] MEDS: SODIUM CHLORIDE 0.9% 1000ML 1,000 ML IVS PRN (14:20)
[2017-04-26] MEDS: MEROPENEM 1 GM in SODIUM CHL 0.9% 50ML MIN-BAG+ 50 ML IVPB SCH ×2 (14:21→22:17)
[2017-04-26] MEDS ORDERED: NON-FORMULARY MEDICATION 1 EA MIS (Quetiapine Fumarate [Seroquel] 300 MG) PO SCH (21:00)
[2017-04-26] MEDS: HYDROcodone 5MG/APAP 325MG 1 EA TAB PO PRN (21:09)
[2017-04-26] MEDS: QUEtiapine FUMARATE 100 MG TAB PO SCH ×2 (21:09)
[2017-04-26] MEDS: ENOXAPARIN SODIUM 40 MG/0.4 ML SYG SUBCU SCH (22:17)
[2017-04-26] MEDS: NICOTINE PATCH 14 MG TD SCH ×2 (23:52)
[2017-04-27] MEDS: SODIUM CHLORIDE 0.9% 1000ML 1,000 ML IVS PRN (04:07)
[2017-04-27] MEDS ORDERED: SODIUM CHL 0.9% 50ML MIN-BAG+ 50 ML IVPB ONE ×3 (04:28→19:45)
[2017-04-27] MEDS ORDERED: MEROPENEM 1 GM VIAL IVPB ONE ×3 (04:29→19:46)
[2017-04-27] MEDS: traMADol HCL 50 MG TAB PO PRN (06:15)
[2017-04-27] MEDS: OMEPRAZOLE CAP 20 MG CAP PO SCH (06:15)
[2017-04-27] MEDS: MEROPENEM 1 GM in SODIUM CHL 0.9% 50ML MIN-BAG+ 50 ML IVPB SCH ×3 (06:15→21:27)
[2017-04-27] MEDS: POTASSIUM CHLORIDE 10 MEQ TAB PO SCH ×2 (08:25→17:00)
[2017-04-27] MEDS: CHLORHEXIDINE GLUC 4% 15ML 45 ML, WATER FOR IRRIGATION 1,000 ML TOP SCH ×2 (08:28)
[2017-04-27] MEDS: IPRATROPIUM/ALBUTEROL 3 ML VIAL NEB SCH ×4 (08:30→20:36)
[2017-04-27] MEDS ORDERED: POTASSIUM CHLORIDE 10 MEQ TAB PO ONE (10:30)
[2017-04-27] MEDS: HYDROcodone 5MG/APAP 325MG 1 EA TAB PO PRN ×2 (14:45→21:30)
[2017-04-27] MEDS: ALPRAZolam 0.5 MG TAB PO PRN ×2 (14:45→23:23)
[2017-04-27] MEDS: BIFIDOBACTERIUM INFANTIS 4 MG CAP PO SCH (17:01)
--- NOTE | 2017-04-27 18:56 | PN ---
DATE: 04/27/17 SUBJECTIVE: The patient is "feeling much better." She is up walking in the room and is encouraged to even do more. Still with tenderness, slight swelling over the area of the left antecubital space with dressing and cleansing of the area continuing. Still awaiting anaerobic culture information from the reference lab. Appetite is improving. OBJECTIVE: Afebrile, blood pressure 110/68, pulse oximetry 96% on room air, pulse 64. Generally the patient is more alert today and less tense, and more relaxed. LUNGS: Clear. HEART: Tones regular. ABDOMEN: Obese yet soft. EXTREMITIES: Left antecubital with a dressing still with some swelling and tenderness, but less erythema today and also minimal discharge drainage. ASSESSMENT: 1. Acute infection with abscess and cellulitis, left elbow at medial antecubital location, post incision and drainage, failing outpatient therapy with evidence of an anaerobic growth on culture with specimen being sent to reference lab for identification. 2. Mild hypokalemia, showing some worsening with supplementation to be increased. 3. History of bipolar in the past. 4. History of coronary artery disease with coronary stents times 3. 5. Chronic obstructive pulmonary disease in a chronic smoker, now stopping on nicotine patches. 6. Hyperlipidemia. 7. History of macular degeneration. PLAN: Reevaluate in the morning. If condition show improvement and continued improvement is noted in the abscess and cellulitis region of the left arm, then consider continued outpatient therapy. Outpatient therapy with an anaerobic medication such as Flagyl may be considered. Whether low dose of Levaquin is appropriate to be determined. Close followup after discharge with Dr. Lee in his clinic. #[id number] [facility]
[2017-04-27] MEDS ORDERED: QUEtiapine FUMARATE 100 MG TAB PO SCH (21:00)
[2017-04-27] MEDS: SODIUM CHLORIDE 0.9% (FLUSH) 10 ML SYG IV PRN ×2 (21:26→23:23)
[2017-04-27] MEDS: ENOXAPARIN SODIUM 40 MG/0.4 ML SYG SUBCU SCH (21:27)
[2017-04-27] MEDS: NICOTINE PATCH 14 MG TD SCH (23:23)
[2017-04-28] MEDS ORDERED: MEROPENEM 1 GM VIAL IVPB ONE ×2 (05:32→13:17)
[2017-04-28] MEDS ORDERED: SODIUM CHL 0.9% 50ML MIN-BAG+ 50 ML IVPB ONE ×2 (05:32→13:17)
[2017-04-28] MEDS: SODIUM CHLORIDE 0.9% (FLUSH) 10 ML SYG IV PRN (05:59)
[2017-04-28] MEDS: OMEPRAZOLE CAP 20 MG CAP PO SCH (06:00)
[2017-04-28] MEDS: MEROPENEM 1 GM in SODIUM CHL 0.9% 50ML MIN-BAG+ 50 ML IVPB SCH ×2 (06:00→13:21)
[2017-04-28] MEDS: HYDROcodone 5MG/APAP 325MG 1 EA TAB PO PRN ×2 (06:06→11:21)
[2017-04-28] MEDS: BIFIDOBACTERIUM INFANTIS 4 MG CAP PO SCH (07:52)
[2017-04-28] MEDS: POTASSIUM CHLORIDE 10 MEQ TAB PO SCH (07:52)
[2017-04-28] MEDS: CHLORHEXIDINE GLUC 4% 15ML 45 ML, WATER FOR IRRIGATION 1,000 ML TOP SCH ×2 (07:52)
[2017-04-28] MEDS: traMADol HCL 50 MG TAB PO PRN (07:57)
[2017-04-28] MEDS: IPRATROPIUM/ALBUTEROL 3 ML VIAL NEB SCH ×2 (08:39→12:39)
[2017-04-28] MEDS: ALPRAZolam 0.5 MG TAB PO PRN (11:21)
[2017-04-28 13:23] VITALS: O2SAT 96
[2017-04-28 13:52] VITALS: BP 111/78; TEMP 98.6
[2017-04-28] MEDS ORDERED: NICOTINE PATCH 14 MG TD SCH (21:00)
--- NOTE | 2017-05-08 08:20 | DS ---
SUPERVISING PHYSICIAN: Pantera Nash MD DISCHARGE DIAGNOSIS: 1. Acute infection with abscess and cellulitis, left elbow at medial antecubital location, post incision and drainage, failing outpatient therapy with evidence of an anaerobic growth on culture with specimen being sent to reference lab for identification with the patient on antibiotic coverage to include doxycycline and Levaquin, showing good response to inpatient IV therapy. 2. Mild hypokalemia, resolved with replacement therapy. 3. History of bipolar disorder. 4. History of coronary artery disease with coronary stents times 3. 5. Chronic obstructive pulmonary disease in a chronic smoker, encouraged to stop smoking utilizing nicotine patches. 6. Hyperlipidemia. 7. History of macular degeneration. HISTORY OF PRESENT ILLNESS: Ms. Campos is a 56 year-old white female who was admitted to the hospital from the Emergency Room because of failure to improve and failing outpatient therapy since an incision and drainage of an abscess and cellulitis of the left elbow with initiated treatment from 04/24/17. She apparently started about 4 days ago with an itching spot which was possibly an insect bite that she scratched. Whether the skin broke with her scratching, she was not aware of. It got progressively worse with swelling, redness, tenderness and pain until the point where it had to be incised and drained of a purulent material on the evening prior to admission in the Emergency Room. She was started on clindamycin by mouth at that time. Her condition steadily worsened until she re-entered the Emergency Room on the evening of admission and was admitted to the hospital because of her past history of significant cavitary lesions in her lungs, but also the fact that her current organisms from her incision and drainage previously showed an anaerobic organism that was not fully treatable by the usual oral routes. The patient was admitted to the hospital after a dose of Invanz after initial cultures were again obtained with blood cultures as well. Other lab did reveal a low potassium of 3.5, while white count was normal, but the patient may have some underlying immune deficiency presentations with her previous history of drug use and failure to respond in the outpatient treatment. LABORATORY: CBC on admission showed a normal CBC as well at discharge white count was 6,200. Differential was within normal limits. Chemistries on admission showed a low potassium of 3.5. Otherwise, liver functions, electrolytes were all within normal limits. Calcium 9.3, magnesium 1.8. C- reactive protein was within normal limits at 0.7. Amylase and lipase were normal at 39 and 28. TSH was normal at 0.67. On discharge, her electrolytes were normalized with normal potassium at 3.6. Urinalysis on admission showed just 1+ budding yeast, otherwise within normal limits. MICROBIOLOGY: Blood cultures remained negative after 5 days. Wound culture of the abscessed elbow was sent to reference lab and is still pending at time of discharge. MRSA surveillance culture was no growth at 72 hours. RADIOLOGY: Chest x-ray on admission per radiologic interpretation, single view chest, showed no evidence of acute cardiopulmonary disease. She also had a left elbow x-ray showing no acute fractures or dislocations. No additional radiographic studies were obtained. HOSPITAL COURSE: Ms. Campos was admitted as noted in history of present illness for initiation of antibiotic therapy for underlying infection. She was started on Invanz initially as well as vancomycin per pharmacy protocol and then meropenem. She was given a nicotine patch for smoking cessation. She was started on some p.o. replacement of potassium as well as IV, which showed good improvement. The wound was cleansed daily with chlorhexidine and Hibiclens solution and wound management and showed good resolution of swelling and erythema. It was felt that she was showing good clinical response and was able to continue with outpatient treatment plan. PLAN: Ms. Campos was discharged on 04/28/17 with instructions to followup clinically with her primary care provider, Dr. Lee, in 1 to 2 weeks as well as wound care. Wound care was as directed, to shower, no tub baths and cleanse with Hibiclens solution and to keep covered with sterile dressing. She was told to return to the hospital should she have recurrent symptoms. DISCHARGE MEDICATIONS: 1. Tylenol No. 3 for pain 1 q.4h. as needed, #30. 2. Align 4 mg daily. 3. Doxycycline 100 mg q.12h., #28. 4. Levaquin 500 mg daily, #14. All other home medications were resumed as prior to admission. DIET AT DISCHARGE: Regular diet as tolerated. ACTIVITY: As tolerated. CONDITION AT DISCHARGE: Stable and improved. [facility][id number] [facility]
== END 2017-04-28 14:06 | disposition home or self-care (01) | DRG 603 ==
LOC: ER 17:43 → UNDOADMIN 20:28 → MS 20:28 → UNDOADMOB 20:28 → UNDODISIN 20:28 → MS 20:28 → INTOOBSV 20:28 → OBSVTOIN 20:28 → ER 20:55
PROVIDERS: ADMIT Emergency Medicine; ATTEND Nurse Practitioner Family
DX: L03.114 Cellulitis of left upper limb (principal); E87.6 Hypokalemia; I25.10 Atherosclerotic heart disease of native coronary artery without angina pectoris; J44.9 Chronic obstructive pulmonary disease, unspecified; E78.5 Hyperlipidemia, unspecified; H35.30 Unspecified macular degeneration; L02.414 Cutaneous abscess of left upper limb; F31.9 Bipolar disorder, unspecified; Z79.82 Long term (current) use of aspirin; E66.9 Obesity, unspecified; F17.210 Nicotine dependence, cigarettes, uncomplicated; I25.2 Old myocardial infarction; Z95.5 Presence of coronary angioplasty implant and graft; Z98.890 Other specified postprocedural states; Z88.2 Allergy status to sulfonamides; Z88.8 Allergy status to other drugs, medicaments and biological substances; Z79.899 Other long term (current) drug therapy; Z68.34 Body mass index [BMI] 34.0-34.9, adult

== ENCOUNTER 2017-06-09 20:41 | Emergency (ER) | payer MEDICARE, MEDICAID ==
[2017-06-09 21:05] VITALS: O2SAT 96
--- NOTE | 2017-06-09 21:36 | ED.PDOC ---
History of Present Illness - General Chief Complaint: Respiratory Problem Stated Complaint: cough congestion fever x 2 weeks Time Seen by Provider: 06/09/17 21:21 Source: patient Exam Limitations: no limitations - History of Present Illness Comments: SHE HAS BEEN HAVING A PRODUCTIVE COUGH FOR THE PAST TWO WEEKS. SHE HAS COPD AND IS A SMOKER. SHE ALSO VOICES THAT SHE HAS HAD INTERMITTENT FEVER, MYALGIAS AND A HEADACHE. Timing/Duration: week - TWO WEEKS Cough Quality/Degree: productive cough, sputum Possible Cause: frequent episodes Improving Factors: nothing Worsening Factors: nothing Associated Symptoms: cough, fever/chills, headache, shortness of breath, sore throat Respiratory Risk Factors: other - HX OF COPD AND TOBACCO ABUSE Allergies/Adverse Reactions: Allergies Statins Allergy (Verified 06/09/17 20:54) Sulfa Antibiotics Allergy (Verified 06/09/17 20:54) Home Medications: Ambulatory Orders ALPRAZolam [Xanax] 1 mg PO TID 02/24/16 Aspirin [Aspirin Adult Low Dose] 81 mg PO DAILY 02/24/16 Prasugrel [Effient] 10 mg PO DAILY 02/24/16 Albuterol Sulfate [Proair Hfa] 2 puff INH Q6H PRN #1 inhaler 03/14/17 Benzonatate Perles [Tessalon Perles] 100 mg PO TID PRN #30 cap 03/14/17 Quetiapine Fumarate [Seroquel] 300 mg PO BEDTIME 03/14/17 Tramadol HCl 50 mg PO QID 03/14/17 busPIRone HCL [Buspar] 15 mg PO TID 03/14/17 Acetaminophen W/ Codeine [Tylenol W/ CODEINE #3] 1 ea PO Q4HR PRN #30 04/28/17 Bifidobacterium Infantis [Align] 4 mg PO DAILY cap 04/28/17 Doxycycline Hyclate [Vibramycin] 100 mg PO Q12H #28 cap 04/28/17 levoFLOXacin [Levaquin] 500 mg PO DAILY #14 tab 04/28/17 Albuterol Inhaler [Ventolin Hfa Inhaler] 2 puff INH Q6HR #1 inh 06/09/17 Azithromycin [Zithromax Z-Uri] 1 ea PO DAILY #1 pack 06/09/17 Dextromethorphan-Guaifenesin [Delsym Cough + Chest Bipin 5-100 mg/5Ml] 10 ml PO BID 5 Days #100 liq 06/09/17 Fluticasone/Salmeterol 250/50 [Advair Diskus] 1 puff INH BID #1 inh 06/09/17 predniSONE 20 mg PO DAILY #7 tab 06/09/17 Review of Systems - Review of Systems Constitutional: States: fever, malaise EENTM: States: throat pain Respiratory: States: cough, short of breath, wheezing Cardiology: States: no symptoms reported Gastrointestinal/Abdominal: States: no symptoms reported Genitourinary: States: no symptoms reported Musculoskeletal: States: no symptoms reported Skin: States: no symptoms reported Neurological: States: no symptoms reported Endocrine: States: no symptoms reported Hematologic/Lymphatic: States: no symptoms reported All other Systems: Reviewed and Negative Past Medical History (General) - Patient Medical History Hx Seizures: No Hx Stroke: No Hx Dementia: No Hx Asthma: Yes Hx of COPD: Yes Hx Cardiac Disorders: Yes - stents x 3 Hx Congestive Heart Failure: Yes Hx Pacemaker: No Hx Hypertension: Yes Hx Thyroid Disease: No Hx Diabetes: No Hx Gastroesophageal Reflux: Yes Hx Renal Disease: No Hx Cancer: No Hx of HIV: No Hx Hepatitis C: No Hx MRSA: Yes MRSA Source:: Wound Surgical History: cholecystectomy, Hysterectomy, other - Vaccination History Hx Tetanus, Diphtheria Vaccination: Yes Hx Influenza Vaccination: No Hx Pneumococcal Vaccination: No - Social History Hx Tobacco Use: Yes Hx Chewing Tobacco Use: No Hx Alcohol Use: No Hx Substance Use: No Hx Substance Use Treatment: No Hx Depression: No Hx Physical Abuse: No Hx Emotional Abuse: No Hx Suspected Abuse: No - Female History Patient is a Female of Child Bearing Age (10 -59 yrs old): Yes - Hystectomy Patient : No - Triage Comment ED Triage Comment: Presents to ER--C/O prod. cough x 1 week of grenn to yellow sputum and feve intermittently with nausea---no vomiting or diarrhea, body aches allover x 2 weeks--pain is 8 overall. Family Medical History - Family History Mother Family History: Unknown Living Status: Still Living Hx Family Hypertension: Yes - dad Hx Cardiac Disease: Yes - dad/sisters Hx Family Cancer: Yes - dad Physical Exam - Physical Exam General Appearance: Alert, Anxious, Well Developed, Well Groomed, Well Hydrated Eye Exam: bilateral normal ENT Exam: normal ENT inspection, TMs normal, pharynx normal, nasal congestion, nasal drainage Neck: non-tender, full range of motion, supple, normal inspection, trachea midline Respiratory: rhonchi, other - BILATERAL RHONCI AND OCCASIONAL WHEEZES Cardiovascular/Chest: regular rate, rhythm, no edema, no gallop, no JVD, no murmur Gastrointestinal/Abdominal: non tender, soft, no organomegaly, no pulsatile mass Extremity: normal range of motion, non-tender, normal inspection, no pedal edema Neurologic: alert, normal mood/affect, oriented x 3 Skin Exam: normal color Lymphatic: no adenopathy Progress - Results/Orders Results/Orders: THE RSS AND THE INFLUENZA SREEN ARE NEGATIVE. THE CHEST X-RAY IS ALSO NEGATIVE FOR ACUTE PROCESS. Departure - Departure Clinical Impression: COPD exacerbation Acute bronchitis Qualifiers: Bronchitis organism: other organism Qualified Code(s): J20.8 - Acute bronchitis due to other specified organisms Time of Disposition: 21:59 Disposition: Discharge to Home or Self Care Condition: Good Departure Forms: ED Discharge - Pt. Copy, Patient Portal Self Enrollment Instructions: DI for Acute Bronchitis Diet: resume usual diet Activity: increase activity as tolerated Referrals: Rosendo Lee MD [Primary Care Provider] - 1-2 Weeks Prescriptions: Albuterol Inhaler [Ventolin Hfa Inhaler] 2 puff INH Q6HR #1 inh Azithromycin [Zithromax Z-Uri] 1 ea PO DAILY #1 pack Dextromethorphan-Guaifenesin [Delsym Cough + Chest Bipin 5-100 mg/5Ml] 10 ml PO BID 5 Days #100 liq Fluticasone/Salmeterol 250/50 [Advair Diskus] 1 puff INH BID #1 inh predniSONE 20 mg PO DAILY #7 tab Home Medications: Ambulatory Orders ALPRAZolam [Xanax] 1 mg PO TID 02/24/16 Aspirin [Aspirin Adult Low Dose] 81 mg PO DAILY 02/24/16 Prasugrel [Effient] 10 mg PO DAILY 02/24/16 Albuterol Sulfate [Proair Hfa] 2 puff INH Q6H PRN #1 inhaler 03/14/17 Benzonatate Perles [Tessalon Perles] 100 mg PO TID PRN #30 cap 03/14/17 Quetiapine Fumarate [Seroquel] 300 mg PO BEDTIME 03/14/17 Tramadol HCl 50 mg PO QID 03/14/17 busPIRone HCL [Buspar] 15 mg PO TID 03/14/17 Acetaminophen W/ Codeine [Tylenol W/ CODEINE #3] 1 ea PO Q4HR PRN #30 04/28/17 Bifidobacterium Infantis [Align] 4 mg PO DAILY cap 04/28/17 Doxycycline Hyclate [Vibramycin] 100 mg PO Q12H #28 cap 04/28/17 levoFLOXacin [Levaquin] 500 mg PO DAILY #14 tab 04/28/17 Albuterol Inhaler [Ventolin Hfa Inhaler] 2 puff INH Q6HR #1 inh 06/09/17 Azithromycin [Zithromax Z-Uri] 1 ea PO DAILY #1 pack 06/09/17 Dextromethorphan-Guaifenesin [Delsym Cough + Chest Bipin 5-100 mg/5Ml] 10 ml PO BID 5 Days #100 liq 06/09/17 Fluticasone/Salmeterol 250/50 [Advair Diskus] 1 puff INH BID #1 inh 06/09/17 predniSONE 20 mg PO DAILY #7 tab 06/09/17
--- NOTE | 2017-06-09 21:53 | RAD ---
Examination: XR CHEST 1 VIEW dated 06/09/2017 9:16 PM DENTIST/OWNER History: cough Comparison: None Technique: Frontal view of the chest Findings: Linear atelectasis of the right upper lung zone. Lungs are otherwise clear. No pneumothorax or pleural effusion. The cardiomediastinal silhouette is within normal limits. Impression: No acute findings. Electronically signed by: Pantera Pretty MD 06/09/2017 9:52 PM DENTIST/OWNER
[2017-06-09] MEDS ORDERED: cefTRIAXone SODIUM 1 GM VIAL IM ONE (21:57)
[2017-06-09] MEDS ORDERED: methylPREDNISolone SODIUM SUC 125 MG/2 ML VIAL IM ONE (21:58)
[2017-06-09] MEDS ORDERED: LIDOCAINE 1% 10 ML VIAL INJ ONE (22:06)
[2017-06-09 22:30] VITALS: BP 145/56; TEMP 97.5
== END 2017-06-09 22:30 | disposition home or self-care (01) ==
LOC: ER 20:41
DX: J44.1 Chronic obstructive pulmonary disease with (acute) exacerbation (principal); J20.8 Acute bronchitis due to other specified organisms; J44.0 Chronic obstructive pulmonary disease with (acute) lower respiratory infection; K21.9 Gastro-esophageal reflux disease without esophagitis; Z87.891 Personal history of nicotine dependence; I11.0 Hypertensive heart disease with heart failure; I50.9 Heart failure, unspecified; Z79.899 Other long term (current) drug therapy; Z79.82 Long term (current) use of aspirin
CPT/HCPCS: 71010; 87070; 87502; 87651; J0696; J2930

== ENCOUNTER 2017-06-18 22:24 | Emergency (ER) | payer MEDICARE, MEDICAID ==
[2017-06-18 22:47] VITALS: TEMP 98.3; O2SAT 94
--- NOTE | 2017-06-18 23:11 | RAD ---
EXAM: Two view(s) of the left hip. INDICATION: Pain. COMPARISON: None. FINDINGS: No acute fracture or dislocation. No large soft tissue swelling. IMPRESSION: 1. No acute fracture. Electronically signed by: Frankie Adames MD 06/18/2017 11:10 PM [facility] Workstation: [id number]
--- NOTE | 2017-06-18 23:12 | RAD ---
EXAM: PELVIS AP XR DATE: 06/18/2017 10:46 PM COMMUTATOR REPAIRER CLINICAL INDICATION: fall from standing. TECHNIQUE: AP view the pelvis COMPARISON: Unavailable FINDINGS: The pelvic ring is intact. The sacrum is normal. The sacroiliac joints are maintained. The hip joint spaces are preserved. The pubic symphysis is normal. Visualized soft tissues are normal. IMPRESSION: No acute fracture or dislocation Electronically signed by: Franike Adames MD 06/18/2017 11:11 PM COMMUTATOR REPAIRER Workstation: [id number]
--- NOTE | 2017-06-18 23:12 | RAD ---
EXAM: Three view(s) of the left knee. INDICATION: Pain. COMPARISON: None. FINDINGS: No acute fracture or dislocation. There is mild medial compartment joint space narrowing with subchondral sclerosis. No large soft tissue swelling. IMPRESSION: 1. No acute fracture. Electronically signed by: Frankie Adames MD 06/18/2017 11:11 PM [facility] Workstation: [id number]
--- NOTE | 2017-06-18 23:43 | ED.PDOC ---
History of Present Illness - General Chief Complaint: Lower Extremity Injury Stated Complaint: left leg injury, pain knee and ankle from fall Time Seen by Provider: 06/18/17 22:45 Source: patient Exam Limitations: no limitations - History of Present Illness Initial Comments: The patient is a 56-year-old female presenting to the emergency room after having fallen in her house. She was able to get up but she is having some pain in her left hip and her left knee. There is no gross deformity or new bruising. No obvious ligamentous injury. She is having some muscle spasm. She does appear to be neurovascularly preserved. Pelvis does appear to be stable. Timing/Duration: 1/2 hour Severity: moderate Improving Factors: nothing Worsening Factors: movement Associated Symptoms: denies symptoms Allergies/Adverse Reactions: Allergies Statins Allergy (Verified 06/18/17 22:47) Sulfa Antibiotics Allergy (Verified 06/18/17 22:47) Home Medications: Ambulatory Orders ALPRAZolam [Xanax] 1 mg PO TID 02/24/16 Aspirin [Aspirin Adult Low Dose] 81 mg PO DAILY 02/24/16 Prasugrel [Effient] 10 mg PO DAILY 02/24/16 Albuterol Sulfate [Proair Hfa] 2 puff INH Q6H PRN #1 inhaler 03/14/17 Benzonatate Perles [Tessalon Perles] 100 mg PO TID PRN #30 cap 03/14/17 Quetiapine Fumarate [Seroquel] 300 mg PO BEDTIME 03/14/17 Tramadol HCl 50 mg PO QID 03/14/17 busPIRone HCL [Buspar] 15 mg PO TID 03/14/17 Acetaminophen W/ Codeine [Tylenol W/ CODEINE #3] 1 ea PO Q4HR PRN #30 04/28/17 Bifidobacterium Infantis [Align] 4 mg PO DAILY cap 04/28/17 Doxycycline Hyclate [Vibramycin] 100 mg PO Q12H #28 cap 04/28/17 levoFLOXacin [Levaquin] 500 mg PO DAILY #14 tab 04/28/17 Albuterol Inhaler [Ventolin Hfa Inhaler] 2 puff INH Q6HR #1 inh 06/09/17 Azithromycin [Zithromax Z-Uri] 1 ea PO DAILY #1 pack 06/09/17 Dextromethorphan-Guaifenesin [Delsym Cough + Chest Bipin 5-100 mg/5Ml] 10 ml PO BID 5 Days #100 liq 06/09/17 Fluticasone/Salmeterol 250/50 [Advair Diskus] 1 puff INH BID #1 inh 06/09/17 predniSONE 20 mg PO DAILY #7 tab 06/09/17 Rdauzyhgxcyyx-Pmth-Yrrfidarpc [Fioricet] 1 ea PO Q8H PRN #21 tab 06/18/17 Review of Systems - Review of Systems Constitutional: States: no symptoms reported EENTM: States: no symptoms reported Respiratory: States: no symptoms reported Cardiology: States: no symptoms reported Gastrointestinal/Abdominal: States: no symptoms reported Genitourinary: States: no symptoms reported Musculoskeletal: States: see HPI Skin: States: no symptoms reported Neurological: States: no symptoms reported Endocrine: States: no symptoms reported All other Systems: No Change from Baseline Past Medical History (General) - Patient Medical History Hx Seizures: No Hx Stroke: No Hx Dementia: No Hx Asthma: Yes Hx of COPD: Yes Hx Cardiac Disorders: Yes - stents x 3 Hx Congestive Heart Failure: Yes Hx Pacemaker: No Hx Hypertension: Yes Hx Thyroid Disease: No Hx Diabetes: No Hx Gastroesophageal Reflux: Yes Hx Renal Disease: No Hx Cancer: No Hx of HIV: No Hx Hepatitis C: No Hx MRSA: Yes MRSA Source:: Wound Surgical History: cholecystectomy, Hysterectomy - Vaccination History Hx Tetanus, Diphtheria Vaccination: Yes Hx Influenza Vaccination: No Hx Pneumococcal Vaccination: No - Social History Hx Tobacco Use: Yes Hx Chewing Tobacco Use: No Hx Alcohol Use: No Hx Substance Use: No Hx Substance Use Treatment: No Hx Depression: No Hx Physical Abuse: No Hx Emotional Abuse: No Hx Suspected Abuse: No - Female History Patient : No Family Medical History - Family History Mother Family History: Unknown Living Status: Still Living Hx Family Hypertension: Yes - dad Hx Cardiac Disease: Yes - dad/sisters Hx Family Cancer: Yes - dad Physical Exam - Physical Exam General Appearance: Alert, Comfortable, No apparent distress Eye Exam: bilateral normal Ears, Nose, Throat: hearing grossly normal Neck: non-tender, supple Respiratory: no respiratory distress, no accessory muscle use Cardiovascular/Chest: normal peripheral pulses, regular rate, rhythm, no edema Peripheral Pulses: radial,right: 2+, radial,left: 2+, dorsalis pedis,right: 2+, dorsalis pedis,left: 2+, posterior tibialis,right: 2+, posterior tibialis,left: 2+ Gastrointestinal/Abdominal: non tender, soft, other - pelvis is stable Rectal Exam: deferred Back Exam: no CVA tenderness, no vertebral tenderness Extremity: no pedal edema, no calf tenderness, normal capillary refill, other - see history of present illness 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 X- rays of the pelvis, left hip and left knee show no evidence of fracture or dislocation. This does appear to be primarily a left hip strain. She needs to really ambulate carefully to prevent further falls. Ibuprofen can be used for pain control. She'll be written for a short prescription for Fioricet to the same end. she should follow up with her primary care doctor later next week. ER warnings were given for any significant worsening. 06/18/17 23:43 Departure - Departure Clinical Impression: Strain of left hip Qualifiers: Encounter type: initial encounter Qualified Code(s): S76.012A - Strain of muscle, fascia and tendon of left hip, initial encounter Disposition: Discharge to Home or Self Care Condition: Fair Departure Forms: ED Discharge - Pt. Copy, Patient Portal Self Enrollment Diet: regular diet Activity: increase activity as tolerated Referrals: Rosendo Lee MD [Primary Care Provider] - 1-2 Weeks Prescriptions: Krhscgxzviqbr-Sljt-Kidvjfvhio [Fioricet] 1 ea PO Q8H PRN #21 tab PRN Reason: Pain Home Medications: Ambulatory Orders ALPRAZolam [Xanax] 1 mg PO TID 02/24/16 Aspirin [Aspirin Adult Low Dose] 81 mg PO DAILY 02/24/16 Prasugrel [Effient] 10 mg PO DAILY 09/14/16 Albuterol Sulfate [Proair Hfa] 2 puff INH Q6H PRN #1 inhaler 03/14/17 Benzonatate Perles [Tessalon Perles] 100 mg PO TID PRN #30 cap 03/14/17 Quetiapine Fumarate [Seroquel] 300 mg PO BEDTIME 03/14/17 Tramadol HCl 50 mg PO QID 03/14/17 busPIRone HCL [Buspar] 15 mg PO TID 03/14/17 Acetaminophen W/ Codeine [Tylenol W/ CODEINE #3] 1 ea PO Q4HR PRN #30 04/28/17 Bifidobacterium Infantis [Align] 4 mg PO DAILY cap 04/28/17 Doxycycline Hyclate [Vibramycin] 100 mg PO Q12H #28 cap 04/28/17 levoFLOXacin [Levaquin] 500 mg PO DAILY #14 tab 04/28/17 Albuterol Inhaler [Ventolin Hfa Inhaler] 2 puff INH Q6HR #1 inh 06/09/17 Azithromycin [Zithromax Z-Uri] 1 ea PO DAILY #1 pack 06/09/17 Dextromethorphan-Guaifenesin [Delsym Cough + Chest Bipin 5-100 mg/5Ml] 10 ml PO BID 5 Days #100 liq 06/09/17 Fluticasone/Salmeterol 250/50 [Advair Diskus] 1 puff INH BID #1 inh 06/09/17 predniSONE 20 mg PO DAILY #7 tab 06/09/17 Htoiwvsufxptp-Byaz-Tyzgqutsqd [Fioricet] 1 ea PO Q8H PRN #21 tab 06/18/17 Additional Instructions: the patient is a 56-year-old female presenting to the emergency room secondary to left hip and knee pain after a fall at her home this evening. X- rays of the pelvis, left hip and left knee show no evidence of fracture or dislocation. This does appear to be primarily a left hip strain. She needs to really ambulate carefully to prevent further falls. Ibuprofen can be used for pain control. She'll be written for a short prescription for Fioricet to the same end. she should follow up with her primary care doctor later next week. ER warnings were given for any significant worsening.
[2017-06-18 23:59] VITALS: BP 158/94
== END 2017-06-18 23:59 | disposition home or self-care (01) ==
LOC: ER 22:24
DX: S76.012A Strain of muscle, fascia and tendon of left hip, initial encounter (principal); I11.0 Hypertensive heart disease with heart failure; I50.9 Heart failure, unspecified; Z98.61 Coronary angioplasty status; W19.XXXA Unspecified fall, initial encounter; Y92.009 Unspecified place in unspecified non-institutional (private) residence as the place of occurrence of the external cause

== ENCOUNTER 2017-07-03 05:11 | Emergency (ER) | payer MEDICARE, MEDICAID ==
[2017-07-03 05:31] VITALS: O2SAT 96
--- NOTE | 2017-07-03 06:15 | ED.PDOC ---
History of Present Illness - General Chief Complaint: Abdominal Pain Stated Complaint: abdomen pain Time Seen by Provider: 07/03/17 06:06 Information Source: patient Additional Information: 56 YEAR OLD WHITE FEMALE COMPLAINTS OF ABDOMINAL PAIN SINCE LAST NIGHT AFTER EATING CHICKEN NO FEVER CHILLS PAIN ISTHE RUQ AND NON RADIATING SHE IS SP CHOLECYCTOMY DENIES FEVER CHILLS SHE HAS MULTIPLE COMPLAINTS LIKE SCIATIC PAIN INSOMNIA CHRONIC BACK AND NECK PAIN ( SHE IS BEING WORKED UP BY HER PCP IN [place] ) - History of Present Illness Abdominal Pain Onset Location: RUQ, epigastric Pain Radiation: no radiation Quality: moderate Timing/Duration: 4-6 hours Improving Factors: nothing Worsening Factors: eating Review of Systems - Review of Systems Constitutional: States: no symptoms reported EENTM: States: no symptoms reported Respiratory: States: no symptoms reported Cardiology: States: no symptoms reported Gastrointestinal/Abdominal: States: abdominal pain Genitourinary: States: no symptoms reported Musculoskeletal: States: back pain, joint pain, muscle pain, neck pain Skin: States: no symptoms reported Neurological: States: no symptoms reported Endocrine: States: no symptoms reported Hematologic/Lymphatic: States: no symptoms reported Past Medical History (General) - Patient Medical History Hx Seizures: No Hx Stroke: No Hx Dementia: No Hx Asthma: Yes Hx of COPD: Yes Hx Cardiac Disorders: Yes - stents x 3 Hx Congestive Heart Failure: Yes Hx Pacemaker: No Hx Hypertension: Yes Hx Thyroid Disease: No Hx Diabetes: No Hx Gastroesophageal Reflux: Yes Hx Renal Disease: No Hx Cancer: No Hx of HIV: No Hx Hepatitis C: No Hx MRSA: Yes MRSA Source:: Wound Surgical History: cholecystectomy, Hysterectomy - Vaccination History Hx Tetanus, Diphtheria Vaccination: Yes Hx Influenza Vaccination: No Hx Pneumococcal Vaccination: No - Social History Hx Tobacco Use: Yes Hx Chewing Tobacco Use: No Hx Alcohol Use: No Hx Substance Use: Yes - states marijuana last week Hx Substance Use Treatment: No Hx Depression: No Hx Physical Abuse: No Hx Emotional Abuse: No Hx Suspected Abuse: No - Female History Patient : No - Triage Comment ED Triage Comment: pt very anxious. Out of seraquel and xanax meds. Aches and pain in head, neck and epigastric area. states took enema at home for constipation also. Family Medical History - Family History Mother Family History: Unknown Living Status: Still Living Hx Family Hypertension: Yes - dad Hx Cardiac Disease: Yes - dad/sisters Hx Family Cancer: Yes - dad Physical Exam - Physical Exam General Appearance: Alert, Anxious Eyes, Ears, Nose, Throat Exam: PERRL/EOMI, normal ENT inspection, TMs normal, pharynx normal Neck: non-tender, full range of motion, supple Respiratory: chest non-tender, lungs clear, normal breath sounds Cardiovascular/Chest: normal peripheral pulses, regular rate, rhythm, no edema, no gallop, no JVD Gastrointestinal/Abdominal: normal bowel sounds, non tender, soft Departure - Departure Clinical Impression: Abdominal pain, Esophagitis Disposition: Discharge to Home or Self Care Departure Forms: ED Discharge - Pt. Copy, Patient Portal Self Enrollment Instructions: DI for Abdominal Pain-Adult Referrals: Rosendo Lee MD [Primary Care Provider] - 1-2 Weeks Home Medications: Ambulatory Orders ALPRAZolam [Xanax] 1 mg PO TID 02/24/16 Aspirin [Aspirin Adult Low Dose] 81 mg PO DAILY 02/24/16 Prasugrel [Effient] 10 mg PO DAILY 02/24/16 Albuterol Sulfate [Proair Hfa] 2 puff INH Q6H PRN #1 inhaler 03/14/17 Quetiapine Fumarate [Seroquel] 300 mg PO BEDTIME 03/14/17 Tramadol HCl 50 mg PO QID 03/14/17 busPIRone HCL [Buspar] 15 mg PO TID 03/14/17 Acetaminophen W/ Codeine [Tylenol W/ CODEINE #3] 1 ea PO Q4HR PRN #30 04/28/17 Dextromethorphan-Guaifenesin [Delsym Cough + Chest Bipin 5-100 mg/5Ml] 10 ml PO BID 5 Days #100 liq 06/09/17 Fluticasone/Salmeterol 250/50 [Advair Diskus] 1 puff INH BID #1 inh 06/09/17 Fepfjkmnazxuc-Etha-Lgxbltfexr [Fioricet] 1 ea PO Q8H PRN #21 tab 06/18/17 Carvedilol 3.125 mg PO 07/03/17 Citalopram Hydrobromide [Celexa] 40 mg PO 07/03/17 Diclofenac Sodium [Diclofenac Sodium Dr] 75 mg PO 07/03/17 Lamotrigine [Lamotrigine ER] 100 mg PO 07/03/17 Sucralfate Tab [Carafate Tab] 1 gm PO ACHS 07/03/17
[2017-07-03] MEDS ORDERED: ALUM & MAG HYDROX-SIMETHICONE 30 ML, LIDOCAINE VISCOUS 2% 15 ML PO ONE ×2 (06:17)
[2017-07-03] MEDS ORDERED: SUCRALFATE 1 GM/10 ML 1 GM UD PO ONE (06:17)
[2017-07-03] MEDS ORDERED: LIDOCAINE HCL 2% (MOUTH-THROAT) 15 ML UD ONE (06:29)
[2017-07-03] MEDS ORDERED: ALUM & MAG HYDROX-SIMETHICONE 30 ML UD ONE (06:30)
[2017-07-03] MEDS ORDERED: LORazepam 0.5 MG TAB PO ONE (06:57)
[2017-07-03 07:13] VITALS: BP 137/71; TEMP 98.5
== END 2017-07-03 07:13 | disposition home or self-care (01) ==
LOC: ER 05:11
DX: K20.9 Esophagitis, unspecified (principal); R10.9 Unspecified abdominal pain; J44.9 Chronic obstructive pulmonary disease, unspecified; I11.0 Hypertensive heart disease with heart failure; I50.9 Heart failure, unspecified; K21.9 Gastro-esophageal reflux disease without esophagitis; Z98.61 Coronary angioplasty status; Z87.891 Personal history of nicotine dependence

== ENCOUNTER 2017-10-19 13:25 | Inpatient (IN) | payer OTHER, MEDICAID ==
[2017-10-19] MEDS ORDERED: QUEtiapine FUMARATE 100 MG TAB ONE (13:39)
[2017-10-19] MEDS ORDERED: QUEtiapine FUMARATE 100 MG TAB PO ONE ×2 (13:40→13:41)
[2017-10-19] MEDS ORDERED: POTASSIUM CHLORIDE ELIXIR 20 MEQ/15 ML UD PO ONE (15:29)
[2017-10-19] MEDS ORDERED: MAGNESIUM SULFATE PREMIX 2GM 2 GM in PREMIX BAG 1 BAG IVPB ONE (15:41)
--- NOTE | 2017-10-19 15:56 | ED.PDOC ---
History of Present Illness - General Chief Complaint: Neuro Symptoms/Deficits Stated Complaint: anxiety, chest pressure Time Seen by Provider: 10/19/17 13:29 Source: patient, EMS notes reviewed Exam Limitations: clinical condition - History of Present Illness Initial Comments: The patient is a 56-year-old female presenting to the emergency room by EMS. The patient had shown up in someone's driveway acting bizarrely. They did not know her so they called EMS. Upon arrival by EMS and they found that the patient was obviously intoxicated. She is not sure what day it is. She is not sure where she was. She is however able to give her medical history and fairly good detail. She reports that she has not been on her psych medications for a couple of weeks and she has been using illicit substances over the past couple of days. Methamphetamine is highly suspected based on her behavior here. The patient is most definitely manic. She is unable to sit still for more than a couple of seconds. Speech is rapid and pressured. She is not showing any neurological deficits. She is not complaining of any chest pain or shortness of breath. No syncope or near syncope and though she does have mild bruising scattered over her body no evidence of any major trauma. She notes she is in the [facility]. She knows why she is here. The patient reports she has not eaten or drank anything for the last 3 days. She reports that she went off of her medications and started abusing drugs again because her son was just sent off to care home. She does have a history of bipolar disorder. She is obviously manic. She does not appear to be hallucinating. She has not been violent with staff. She does report generalized achiness all over. Timing/Duration: 1 week Severity: severe Improving Factors: nothing Worsening Factors: nothing Associated Symptoms: weakness Allergies/Adverse Reactions: Allergies Statins Allergy (Verified 06/18/17 22:47) Sulfa Antibiotics Allergy (Verified 06/18/17 22:47) Home Medications: Ambulatory Orders ALPRAZolam [Xanax] 1 mg PO TID 02/24/16 Aspirin [Aspirin Adult Low Dose] 81 mg PO DAILY 02/24/16 Prasugrel [Effient] 10 mg PO DAILY 02/24/16 Albuterol Sulfate [Proair Hfa] 2 puff INH Q6H PRN #1 inhaler 03/14/17 Quetiapine Fumarate [Seroquel] 300 mg PO BEDTIME 03/14/17 Tramadol HCl 50 mg PO QID 03/14/17 busPIRone HCL [Buspar] 15 mg PO TID 03/14/17 Acetaminophen W/ Codeine [Tylenol W/ CODEINE #3] 1 ea PO Q4HR PRN #30 04/28/17 Dextromethorphan-Guaifenesin [Delsym Cough + Chest Bipin 5-100 mg/5Ml] 10 ml PO BID 5 Days #100 liq 06/09/17 Fluticasone/Salmeterol 250/50 [Advair Diskus] 1 puff INH BID #1 inh 06/09/17 Quhfihgdjpkzw-Imxr-Bttvdptwfx [Fioricet] 1 ea PO Q8H PRN #21 tab 06/18/17 Carvedilol 3.125 mg PO 07/03/17 Citalopram Hydrobromide [Celexa] 40 mg PO 07/03/17 Diclofenac Sodium [Diclofenac Sodium Dr] 75 mg PO 07/03/17 Lamotrigine [Lamotrigine ER] 100 mg PO 07/03/17 Sucralfate Tab [Carafate Tab] 1 gm PO ACHS 07/03/17 Review of Systems - Review of Systems Review of Systems: 10/19/17 15:57 review of systems is somewhat limited by patient's attention span and mumbled responses. 10/19/17 15:57 Constitutional: States: diaphoresis, malaise EENTM: States: other - dry mouth Respiratory: States: no symptoms reported Cardiology: States: palpitations - on occasion when she abuses drugs Gastrointestinal/Abdominal: States: no symptoms reported Genitourinary: States: no symptoms reported Musculoskeletal: States: other - eneralized achiness Skin: States: see HPI Neurological: States: anxiety, depressed Endocrine: States: no symptoms reported All other Systems: No Change from Baseline Past Medical History (General) - Patient Medical History Hx Seizures: No Hx Stroke: No Hx Dementia: No Hx Asthma: Yes Hx of COPD: Yes Hx Cardiac Disorders: Yes - stents x 3 Hx Congestive Heart Failure: Yes Hx Pacemaker: No Hx Hypertension: Yes Hx Thyroid Disease: No Hx Diabetes: No Hx Gastroesophageal Reflux: Yes Hx Renal Disease: No Hx Cancer: No Hx of HIV: No Hx Hepatitis C: Yes Hx MRSA: Yes MRSA Source:: Wound - Vaccination History Hx Tetanus, Diphtheria Vaccination: Yes Hx Influenza Vaccination: No Hx Pneumococcal Vaccination: No - Social History Hx Tobacco Use: Yes Hx Chewing Tobacco Use: No Hx Alcohol Use: No Hx Substance Use: Yes - states marijuana last week Hx Substance Use Treatment: No Hx Depression: No Hx Physical Abuse: No Hx Emotional Abuse: No Hx Suspected Abuse: No - Female History Patient : No Family Medical History - Family History Mother Family History: Unknown Living Status: Still Living Hx Family Hypertension: Yes - dad Hx Cardiac Disease: Yes - dad/sisters Hx Family Cancer: Yes - dad Physical Exam - Physical Exam General Appearance: Alert, Anxious, Other - obviously intoxicated with stimulants Eye Exam: bilateral normal - pupils are moderately dilated. 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, no motor/sensory deficits, alert, other - the patient is manic Skin Exam: normal color - scattered bruising from the past 5 days activities Comments: Vital Signs - 24 hr 10/19/17 10/19/17 10/19/17 13:25 13:53 14:50 Temperature 98.6 F Pulse Rate [ 105 H 105 H 108 H left brachial] Respiratory 40 H 20 Rate Blood Pressure 123/45 107/72 [left brachial] O2 Sat by Pulse 105 H 93 L Oximetry Progress - Progress Progress: 10/19/17 16:01 the patient is a 56-year-old female presenting to the emergency room secondary to altered mental status that appears to be due to a manic episode with her bipolar disorder combined with illicit substance abuse. Patient additionally has hypokalemia hypomagnesemia and some rhabdomyolysis going on. She is receiving some oral potassium and will be receiving some IV magnesium. She has received the first liter of IV fluids. She also received 2 mg of Ativan IM initially to help make the patient manageable. She subsequently received 400 mg of Seroquel which is close to her normal evening dose. At this point in time she seems to be resting comfortably and tolerating medical management well. The patient obviously has a substance abuse problem along with her psychiatric disorders. She will need completion of her medical care and then follow-up with psychiatric care for the rest of her issues. Admit for medical management of rhabdomyolysis, hypomagnesemia and hypokalemia. Restart psychiatric medications to stop manic episode and control bipolar disorder. Refrain from substance abuse. 10/19/17 16:04 - Results/Orders Results/Orders: EKG shows mild sinus tachycardia 112 bpm. Corrected QT interval is 496 ms. The patient does have T-wave inversions in anterior leads. In comparison with previous EKG from about 6 months ago she did have T-wave inversions in leads V1 and V2 at that time. No other new changes. The patient is not having any chest pain. Urinalysis and urine drug screen are still pending as patient has not been able to urinate yet. Laboratory Results - last 24 hr 10/19/17 10/19/17 10/19/17 14:42 14:42 14:42 WBC 8.6 RBC 4.67 Hgb 13.3 Hct 40.4 MCV 86.5 MCH 28.4 MCHC 33.0 RDW 16.0 H Plt Count 176 MPV 7.8 Absolute Neuts (auto) 5.10 Absolute Lymphs (auto) 2.50 Absolute Monos (auto) 0.80 Absolute Eos (auto) 0.10 Absolute Basos (auto) 0.10 Neutrophils % 59.1 Lymphocytes % 28.7 Monocytes % 9.8 H Eosinophils % 1.5 Basophils % 0.9 Sodium 136 Potassium 3.1 L Chloride 99 L Carbon Dioxide 23 Anion Gap 17.1 BUN 18 Creatinine 0.74 BUN/Creatinine Ratio 24.3 H Random Glucose 122 H Serum Osmolality 275.2 Lactic Acid 2.0 Calcium 9.2 Magnesium 1.6 L Total Bilirubin 2.1 H* AST 48 H ALT 23 Alkaline Phosphatase 79 Creatine Kinase 949 H* CK-MB (CK-2) 10.2 H* CK-MB (CK-2) % 1.07 Troponin I < 0.02 Serum Total Protein 7.4 Albumin 4.4 Globulin 3.0 Albumin/Globulin Ratio 1.5 Departure - Departure Clinical Impression: Substance abuse, Manic bipolar I disorder, Hypokalemia, Hypomagnesemia Rhabdomyolysis Qualifiers: Rhabdomyolysis type: non-traumatic Qualified Code(s): M62.82 - Rhabdomyolysis Disposition: Admit Patient Condition: Poor Referrals: Rosendo Lee MD [Primary Care Provider] - 1-2 Weeks Home Medications: Ambulatory Orders ALPRAZolam [Xanax] 1 mg PO TID 02/24/16 Aspirin [Aspirin Adult Low Dose] 81 mg PO DAILY 02/24/16 Prasugrel [Effient] 10 mg PO DAILY 02/24/16 Albuterol Sulfate [Proair Hfa] 2 puff INH Q6H PRN #1 inhaler 03/14/17 Quetiapine Fumarate [Seroquel] 300 mg PO BEDTIME 03/14/17 Tramadol HCl 50 mg PO QID 03/14/17 busPIRone HCL [Buspar] 15 mg PO TID 03/14/17 Acetaminophen W/ Codeine [Tylenol W/ CODEINE #3] 1 ea PO Q4HR PRN #30 04/28/17 Dextromethorphan-Guaifenesin [Delsym Cough + Chest Bipin 5-100 mg/5Ml] 10 ml PO BID 5 Days #100 liq 06/09/17 Fluticasone/Salmeterol 250/50 [Advair Diskus] 1 puff INH BID #1 inh 06/09/17 Nafqsnvyhohhy-Chkn-Wryksbqlez [Fioricet] 1 ea PO Q8H PRN #21 tab 06/18/17 Carvedilol 3.125 mg PO 07/03/17 Citalopram Hydrobromide [Celexa] 40 mg PO 07/03/17 Diclofenac Sodium [Diclofenac Sodium Dr] 75 mg PO 07/03/17 Lamotrigine [Lamotrigine ER] 100 mg PO 07/03/17 Sucralfate Tab [Carafate Tab] 1 gm PO ACHS 07/03/17 Decision To Admit - Decistion To Admit Decision to Admit Reason: Medical Nature Decision to Admit Date: 10/19/17 Decision to Admit Time: 16:06
--- NOTE | 2017-10-19 16:42 | HP ---
SUPERVISING PHYSICIAN: Pantera Nash M.D. CHIEF COMPLAINT: Change in neurologic status, possible overdose. HISTORY OF PRESENT ILLNESS: This is a 56 year-old female patient that presented to the Emergency Room via EMS. The patient appeared in someone's driveway acting bizarrely. She has a history of bipolar disorder. EMS reported that she was obviously intoxicated. Upon arrival in the Emergency Room , she was unable to tell them what day it was, but she knew she was in the hospital. She did give a fairly detailed medical history and did say that she had not been on her psychiatric medications for several weeks and has been using illicit substances over the past couple of days. According to the Emergency Room, methamphetamines was highly suspected. She also told the ER staff she was suicidal last week, but denies suicidal ideation today. She was actually very manic in the Emergency Room. She said she took the illicit drugs because her son was just sent off to nursing home. There were no reports of any hallucinations and she was not violent. In the Emergency Room, her initial labs showed sodium 136, potassium 3.1, chloride 99, carbon dioxide 23, BUN 18, creatinine 0.74, glucose 122, lactic acid 2, uric acid 6.4, calcium 9.2, magnesium 1.6. Total bilirubin 2.1, AST was 48, creatinine kinase 949, CK-MB 10.2. CBC was basically within normal limits. She received some fluids as well as several doses of Ativan as well as Seroquel in the Emergency Room. I was called for admission to the hospital. PAST MEDICAL HISTORY: Limited due to the patient's mental status. Most of the information was obtained via the EMR. 1. Coronary artery disease with 3 stents. 2. Chronic obstructive pulmonary disease in a chronic smoker. 3. Hyperlipidemia. 4. Myocardial infarction in 2016. 5. Bipolar disorder. PAST SURGICAL HISTORY: 1. Cholecystectomy. 2. Three sections. 3. Bladder suspension. 4. Hysterectomy. 5. Breast reduction. 6. Lumbar spine surgery. 7. Coronary artery stents times three. CURRENT MEDICATIONS: Awaiting verification. We are unable to verify those at this time. ALLERGIES: SULFA AND STATINS. SOCIAL HISTORY: There is a history of smoking as well as illicit drug use. No other information is available at this time. REVIEW OF SYSTEMS: Unavailable due to the patient's mental status. PHYSICAL EXAMINATION: VITAL SIGNS: She is afebrile, heart rate 108, blood pressure 107/72, respiratory rate 20, O2 sat is 93% on room air. GENERAL: This is a 56 year-old female patient who is asleep in her hospital bed. She is in no acute distress. HEENT: Normocephalic and atraumatic. Pupils are equal and reactive. She is edentulous. NECK: Supple without mass. CHEST: Diminished breath sounds at the bases, otherwise clear to auscultation. CARDIOVASCULAR: Regular rate and rhythm. At times, she is slightly tachycardic. ABDOMEN: Soft, nondistended. Bowel sounds are positive. EXTREMITIES: No cyanosis, clubbing or edema. NEUROLOGIC: She is obtunded. She does open her eyes to command. LABORATORY: Labs and films are as per the EMR. ASSESSMENT: 1. Rhabdomyolysis. 2. Illicit drug use with questionable overdose. 3. Hyperbilirubinemia. 4. Elevated AST. 5. Bipolar disorder. PLAN: We will admit the patient to the hospital. I will give her fluids. I have ordered a Nair catheter to obtain a urinalysis as well as a UDS. We anticipate removal within 48 hours. Will need to get her medications verified tomorrow and get those restarted. She will be placed on a PPI for ulcer prophylaxis as well as SCDs for DVT prophylaxis. Repeat lab in the morning, including a CPK and CK-MB. We will follow the patient closely. Hopefully she can be discharged in the next several days. Dr. Nash is the collaborating physician available for consultation. #[id number] [facility]
[2017-10-19] MEDS ORDERED: SODIUM CHLORIDE 0.9% 1000ML 1,000 ML IVS ONE (17:46)
[2017-10-19] MEDS ORDERED: SODIUM CHLORIDE 0.9% (FLUSH) 10 ML SYG IV PRN (17:47)
[2017-10-19] MEDS ORDERED: IV SET AND CAP CHANGE INJ INJ SCH (18:00)
[2017-10-19] MEDS ORDERED: MAGNESIUM SULFATE PREMIX 2GM 50 ML IVPB ONE (18:16)
[2017-10-19] MEDS ORDERED: KCL 20MEQ/D5 1/2NS 1,000 ML IVS PRN (19:29)
[2017-10-19] MEDS: SODIUM CHLORIDE 0.9% (FLUSH) 10 ML SYG IV SCH (20:58)
[2017-10-19] MEDS: KCL 20MEQ/D5NS 1,000 ML IVS PRN (21:00)
[2017-10-20] MEDS: KCL 20MEQ/D5NS 1,000 ML IVS PRN ×2 (04:15→18:38)
[2017-10-20] MEDS: SODIUM CHLORIDE 0.9% (FLUSH) 10 ML SYG IV SCH ×2 (08:45→20:41)
[2017-10-20] MEDS ORDERED: KCL 40 MEQ/WATER FOR INJ 100ML 40 MEQ in PREMIX BAG 1 BAG IVPB ONE (09:44)
[2017-10-20] MEDS ORDERED: KCL 40 MEQ/WATER FOR INJ 100ML 100 ML IVPB ONE (10:21)
[2017-10-20] MEDS ORDERED: POTASSIUM CHLORIDE 20 MEQ TAB PO ONE (10:58)
--- NOTE | 2017-10-20 11:26 | PN ---
SUPERVISING PHYSICIAN: Pantera Nash MD DATE: 10/20/17 SUBJECTIVE: The patient is lying in bed. She is much more awake than she was yesterday. She complains that the potassium going in her IV is burning, but otherwise no complaints of nausea, vomiting, diarrhea, constipation, chest pain or shortness of breath. OBJECTIVE: VITAL SIGNS: Afebrile. Heart rate 81. Blood pressure 107/88. Respiratory rate 18. O2 saturation 92% on room air. RESPIRATORY: Essentially clear to auscultation bilaterally, somewhat diminished at the bases. CARDIAC: Regular rate and rhythm. GASTROINTESTINAL: Abdomen is soft, nondistended, nontender. Bowel sounds are positive. NEUROLOGIC: Awake, alert. She does have difficulty answering some questions at this time, but is much more awake than she was yesterday. LABORATORY: CBC is basically within normal limits. Sodium 138, potassium 2.9, chloride 104, carbon dioxide 27, BUN 14, creatinine 0.6, calcium 8.5, magnesium 2. Total bilirubin is improved to 1.8. Liver enzymes have normalized. CPK is improved to 399. CK-MB is improved to 4.6. Urine drug screen is positive for urine opiates, positive for urine amphetamines, methamphetamines and positive for urine benzodiazepines. All other labs and films have been reviewed via the EMR. ASSESSMENT: 1. Rhabdomyolysis, improved. 2. Illicit drug use with questionable overdose. 3. Hyperbilirubinemia, improved. 4. Elevated AST, now normalized. 5. Bipolar disorder with poor medical compliance. She has been off of her medications for several weeks. PLAN: We will continue present supportive care. I have given her potassium supplementation and we will recheck her labs in the morning. We will also need to call [facility] to verify her outpatient medications so we can get those restarted. financial services director has been consulted for her psychiatric discharge care and she will need close followup with her primary care physician, Dr. Lee. We will continue to monitor the patient closely and follow as needed. Dr. Nash is the collaborating physician and available for consultation. #[id number] [facility]
[2017-10-20] MEDS: busPIRone HCL 5 MG TAB PO SCH ×2 (15:59→20:40)
[2017-10-20] MEDS: ALPRAZolam 0.5 MG TAB PO SCH ×2 (17:08→20:39)
[2017-10-20] MEDS ORDERED: ALBUTEROL SULFATE 2.5 MG/3 ML VIAL NEB PRN (18:12)
[2017-10-20] MEDS: lamoTRIgine 100 MG TAB PO SCH (18:38)
[2017-10-20] MEDS: FLUTICASONE/SALMETEROL 250/50 14 PUFF/17 GM INH INH SCH (20:00)
[2017-10-20] MEDS ORDERED: QUEtiapine FUMARATE 100 MG TAB ONE (20:07)
[2017-10-20] MEDS: SUCRALFATE 1 GM TAB PO SCH (20:40)
[2017-10-20] MEDS ORDERED: EZETIMIBE 10 MG TAB PO SCH (21:00)
[2017-10-20] MEDS ORDERED: NON-FORMULARY MEDICATION 1 EA MIS (Quetiapine Fumarate [Seroquel] 300 MG) PO SCH (21:00)
[2017-10-21] MEDS: SUCRALFATE 1 GM TAB PO SCH ×2 (07:14→12:17)
[2017-10-21] MEDS ORDERED: lamoTRIgine 100 MG TAB ONE (07:48)
[2017-10-21] MEDS ORDERED: CARVEDILOL 3.125 MG TAB ONE (07:49)
[2017-10-21] MEDS ORDERED: busPIRone HCL 5 MG TAB ONE (07:49)
[2017-10-21] MEDS ORDERED: PRASUGREL 10 MG TAB ONE (07:49)
[2017-10-21] MEDS ORDERED: ASPIRIN EC 81 MG TAB PO ONE (07:49)
[2017-10-21] MEDS ORDERED: ALPRAZolam 0.5 MG TAB ONE (07:50)
[2017-10-21] MEDS: FLUTICASONE/SALMETEROL 250/50 14 PUFF/17 GM INH INH SCH (08:18)
[2017-10-21] MEDS ORDERED: POTASSIUM CHLORIDE 20 MEQ TAB PO ONE (08:24)
[2017-10-21] MEDS ORDERED: PRASUGREL 10 MG TAB PO SCH (09:00)
[2017-10-21] MEDS: lamoTRIgine 100 MG TAB PO SCH (09:00)
[2017-10-21] MEDS ORDERED: CITALOPRAM HBR 20 MG TAB PO SCH (09:00)
[2017-10-21] MEDS: busPIRone HCL 5 MG TAB PO SCH ×2 (09:00→15:08)
[2017-10-21] MEDS ORDERED: CARVEDILOL 3.125 MG TAB PO SCH (09:00)
[2017-10-21] MEDS ORDERED: ASPIRIN EC 81 MG TAB PO SCH (09:00)
[2017-10-21] MEDS: ALPRAZolam 0.5 MG TAB PO SCH ×2 (09:00→15:08)
[2017-10-21 14:53] VITALS: BP 122/83; TEMP 98; O2SAT 97
--- NOTE | 2017-10-21 17:30 | DS ---
SUPERVISING PHYSICIAN: Pantera Nash M.D. DISCHARGE DIAGNOSIS: 1. Rhabdomyolysis that has improved. 2. Illicit drug use with questionable overdose. 3. Hyperbilirubinemia that has improved. 4. Elevated AST that is now normalized. 5. Bipolar disorder with poor medical compliance. She has been off of her bipolar medications for several weeks. HISTORY OF PRESENT ILLNESS: This is a 56 year-old female patient who was brought to the Emergency Room via EMS. The patient appeared in someone's driveway acting bizarrely. She has a history of bipolar disorder. EMS reported that she was obviously intoxicated. Upon arrival in the Emergency Room , she was unable to tell them what day it was, but she knew she was in the hospital. She the Emergency Room a fairly detailed medical history and said she had not been taking her psychiatric drugs for several weeks, and that she has been using illicit substances over the previous few days. Methamphetamines were highly suspected at the time of admission. She also told the ER that she had been suicidal the previous week but that she was not at this time. Most of that may have been exacerbated because her son was in [facility]. There were no reports of any hallucinations and she was not violent, although she was very manic. Her initial labs showed sodium 136, potassium 3.1, chloride 99, carbon dioxide 23, BUN 18, creatinine 0.74, glucose 122, lactic acid 2, uric acid .4, calcium 9.2, magnesium 1.6. Total bilirubin 2.1, AST was 48, creatinine kinase 949, CK-MB 10.2. CBC was basically within normal limits. She received fluids in the Emergency Room as well as Seroquel and Ativan. She was admitted to the hospital. HOSPITAL COURSE: Her labs were monitored over the next 2 days and her CBC remained basically within normal limits. Potassium was slightly low at times and she has received supplementation for that. Creatinine kinase yesterday was 399 and CK-MB was 4.6. Urine was dark yellow. It had a small amount of urine bilirubin and 4+ urine bacteria. Business Quality Assurance Analyst was consulted. She agreed that she would go back to [place] on discharge to get her medications straightened out. I spoke with Dr. Chan this morning, psychiatrist at [facility] and he agreed to accept the patient in transfer. DISCHARGE PLAN: The patient will be discharged to [facility] in stable condition. She will be under the care of Dr. Chan, psychiatrist. A medication report was sent along with the patient as well as labs and pertinent information. She is to followup with Dr. Lee, her primary care physician after discharge from [place]. DISCHARGE MEDICATIONS: 1. Xanax. 2. Effient. 3. Aspirin. 4. BuSpar. 5. Tramadol. 6. Seroquel. 7. Carvedilol. 8. Pantoprazole. 9. Zetia. 10. Ranitidine. 11. ProAir. 12. Citalopram. 13. Advair Diskus. 14. Lamotrigine. 15. Sucralfate. 16. Acetaminophen with codeine. 17. Mupirocin. 18. Albuterol nebs. Dr. Nash is the collaborating physician available for consultation. #[id number] [facility]
[2017-10-21] MEDS ORDERED: QUEtiapine FUMARATE 100 MG TAB PO SCH (21:00)
== END 2017-10-21 16:10 | DRG 558 ==
LOC: ER 13:25 → MS 16:41
PROVIDERS: ADMIT Nurse Practitioner Acute Care; ATTEND Nurse Practitioner Acute Care
DX: M62.82 Rhabdomyolysis (principal); F31.10 Bipolar disorder, current episode manic without psychotic features, unspecified; T43.621A Poisoning by amphetamines, accidental (unintentional), initial encounter; E87.6 Hypokalemia; E83.42 Hypomagnesemia; E80.6 Other disorders of bilirubin metabolism; R74.8 Abnormal levels of other serum enzymes; I25.10 Atherosclerotic heart disease of native coronary artery without angina pectoris; J44.9 Chronic obstructive pulmonary disease, unspecified; E78.5 Hyperlipidemia, unspecified; I25.2 Old myocardial infarction; F41.9 Anxiety disorder, unspecified; F17.210 Nicotine dependence, cigarettes, uncomplicated; Y92.9 Unspecified place or not applicable; Z88.8 Allergy status to other drugs, medicaments and biological substances; Z95.5 Presence of coronary angioplasty implant and graft; Z88.2 Allergy status to sulfonamides; Z91.14 Patient's other noncompliance with medication regimen; Z79.82 Long term (current) use of aspirin; Z79.899 Other long term (current) drug therapy